=== PATIENT | female | born 1955 | race Caucasian/White ===

== ENCOUNTER 2019-10-21 17:14 | Inpatient (IN) | payer OTHER, MEDICARE, SELFPAY ==
--- NOTE | ~2019-10-21 | CT_ITS ---
EXAMINATION: CT abdomen pelvis wo con DATE: 10/21/2019 19:20 INDICATION: Generalized abdominal pain TECHNIQUE: Computed tomography (CT) of the abdomen and pelvis was performed with 100 cc Omnipaque 350 intravenous contrast. The dose-length product was 1293.49 mGy-cm. Automated exposure control and ite rative reconstruction technique were employed. COMPARISON: CT dated 09/08/2013 FINDINGS: Lung bases are unremarkable. No significant pleural or pericardial effusion. Cardiomegaly. Small right pleural effusion. Status post cholecystectomy. Small amount of free fluid in the pelvis. Stable soft tissue with coarse calcifications in the anterior aspect of the pelvis, which may represent a urachal remnant with asso ciated calcification or postsurgical change. There is thickening and irregularity to the bladder wall superiorly. There is renal atrophy. Status post cholecystectomy with expected prominence of the bile ducts. The s pleen is unremarkable. The adrenal glands are unremarkable. There is stranding of the mesentery and p eritoneum of the upper abdomen. There is mild thickening of the duodenum and distal aspect of the sto mach with surrounding stranding. There is a duodenal diverticulum. No obstruction. There is levoscoli osis. Moderate lumbar spondylosis. IMPRESSION: 1. Fatty infiltration of the upper abdominal peritoneum and mesentery adjacent to the stomach and duo denum, suspicious for infectious/inflammatory etiologies. Cannot exclude pancreatitis as well. Correl ate clinically. No obstruction. No evidence for perforation or abscess. 2: Thickening and irregularity to the superior bladder wall. Cannot exclude transitional cell carcino ma.S table soft tissue with coarse calcifications in the anterior aspect of the pelvis, which may rep resent a urachal remnant with associated calcification or postsurgical change. 3: Tiny right pleural effusion. 4: Small amount of free fluid in the pelvis, nonspecific. 5: Renal atrophy. Reviewed, dictated and finalized at location A. IMPRESSION: 1. Fatty infiltration of the upper abdominal peritoneum and mesentery adjacent to the stomach and duodenum, suspicious for infectious/inflammatory etiologies. Cannot exclude pancreatitis as well. Correlate clinically. No obstruction. No evidence for perforation or abscess. 2: Thickening and irregularity to the superior bladder wall. Cannot exclude tra nsitional cell carcinoma.S table soft tissue with coarse calcifications in the anterior aspect of the pelvis, which may represent a urachal remnant with assoc iated calcification or postsurgical change. 3: Tiny right pleural effusion. 4: Small amount of free fluid in the pelvis, nonspecific. 5: Renal atrophy.
--- NOTE | ~2019-10-21 | US_ITS ---
US right upper quadrant INDICATION: Elevated liver function tests PROCEDURE: Realtime right upper abdominal ultrasound. COMPARISON: Ultrasound dated 09/03/2013 FINDINGS: The pancreas is normal without focal mass or pancreatic ductal dilation. Liver echotexture is increased, consistent with fatty infiltration. There is normal directional flow in the portal ve in. Gallbladder surgically absent. Common bile duct measures 5.5 mm. IMPRESSION: 1: Fatty infiltration of the liver. Reviewed, dictated and finalized at location A.
[2019-10-21 17:58] VITALS: BP 154/51; PULSE 91; RESP 22; TEMP 36.7; O2SAT 100
[2019-10-21 18:16] LABS: Basophils Percent Auto 0.3 % (0.2-1.2); Eosinophils Percent Auto 0.1 % (0-4.4); Hemoglobin 10.4 g/dL (12.0-15.0); Immature Granulocyte Absolute 0.06 K/mm3 (0.00-0.031); Immature Granulocyte Percent A 0.6 % (0-0.5); Lymphocytes Absolute Auto 0.84 K/mm3 (0.9-3.2); Lymphocytes Percent Auto 8.3 % (18.3-44.2); Mean Corpuscular HGB Conc 31.5 g/dl (32-36); Mean Corpuscular Volume 95.1 fl (80-100); Mean Platelet Volume 11.7 fl (7.4-10.4); Monocytes Absolute Auto 0.5 K/mm3 (0.1-0.6); Monocytes Percent Auto 4.6 % (2.6-8.5); Neutrophils Absolute Auto 8.7 K/mm3 (1.3-6.7); Neutrophils Percent Auto 86.1 % (45.5-73.1); Platelet Count Result 220 k/mm3 (150-375); Red Blood Count 3.47 M/mm3 (4.2-5.4); Red Cell Distribution Width 13.1 % (11.5-14.5); White Blood Count 10.1 K/mm3 (4.5-10.0)
[2019-10-21 18:35] LABS: Alanine Aminotransferase 112 U/L (4-35); Albumin Level 3.9 g/dL (3.5-5.1); Alkaline Phosphatase 77 U/L (38-126); Aspartate Amino Transferase 158 U/L (14-36); Bilirubin,Total 1.2 mg/dL (0.2-1.3); Blood Urea Nitrogen 58 mg/dL (7-17); Calcium 9.2 mg/dL (8.4-10.2); Carbon Dioxide 25 mmol/L (22-30); Chloride 90 mmol/L (98-107); Estimated CRCL calculation 10 ml/min; Estimated Glomerular Filt Rate 7; Glucose 472 mg/dL (65-105); Lipase 158 U/L (23-300); Potassium 7.9 mmol/L (3.4-5.0); Sodium 129 mmol/L (137-145)
--- NOTE | 2019-10-21 18:46 | ECG_ITS ---
Measurements Intervals [place] Rate: 55 P: 48 NC: 189 QRS: 47 QRSD: 97 T: 121 QT: 461 QTc: 444 Interpretive Statements SINUS BRADYCARDIA DELAYED PRECORDIAL R/S TRANSITION ST-T WAVE ABNORMALITY IN HIGH LATERAL LEADS- CONSIDER ISCHEMIA ABNORMAL ECG Electronically Signed On 10-21-2019 20:18:31 CDT by Paulo Silva D.O.
--- NOTE | 2019-10-21 19:05 | ED.GENADULT ---
HPI - General Adult General Chief complaint: Abdominal Pain Stated complaint: abd pain Time Seen by Provider: 10/21/19 18:36 History of Present Illness HPI narrative: Patient is a 64 y/o female complaining of burning lower abdominal pain for 1 week. She states that her pain radiates to upper abdomen. She rates her pain as 10/10. There is no alleviating or aggravating factor. She had some vomiting today. She has ESRD and does home dialysis daily -. Her last dialysis treatment was last Monday. Related Data Home Medications Medication Instructions Recorded Confirmed Lantus U-100 Insulin 50 unit SUBCUT HS 04/06/19 10/21/19 Yue-Yves 1 tablet PO DAILY 04/06/19 10/21/19 aspirin 162 mg PO DAILY 04/06/19 10/21/19 atorvastatin [Lipitor] 40 mg PO DAILY 04/06/19 10/21/19 calcitriol 0.25 mcg PO DAILY 04/06/19 10/21/19 cholecalciferol (vitamin D3) 4,000 unit PO DAILY 04/06/19 10/21/19 clonidine HCl 0.1 mg PO BID 04/06/19 10/21/19 clopidogrel 75 mg PO DAILY 04/06/19 10/21/19 escitalopram oxalate [Lexapro] 10 mg PO DAILY 04/06/19 10/21/19 fenofibric acid [Fibricor] 45 mg PO DAILY 04/06/19 10/21/19 furosemide 80 mg PO DAILY 04/06/19 10/21/19 gabapentin 400 mg PO TID 04/06/19 10/21/19 insulin lispro [Humalog Marshall 20 - 30 unit SUBCUT TID 04/06/19 10/21/19 KwikPen U-100] metoprolol tartrate 100 mg PO Q12H 04/06/19 10/21/19 acetaminophen [Tylenol] 650 mg PO TID 10/21/19 10/21/19 sevelamer carbonate [Renvela] 800 mg PO TID 10/21/19 10/21/19 Allergies Allergy/AdvReac Type Severity Reaction Status Date / Time iodine Allergy Unknown Swelling Verified 04/06/19 11:55 lisinopril Allergy Unknown Swelling Verified 04/06/19 11:55 shellfish derived Allergy Unknown Swelling Verified 04/06/19 11:55 Review of Systems Constitutional: Constitutional: Denies chills, Denies fever(s), Denies headache(s) and Denies weakness Eyes: Eyes: Denies blurry vision ENT: Denies headache(s) and Denies neck pain Cardiovascular: Cardiovascular: Denies chest pain and Denies dyspnea Respiratory: Respiratory: Denies cough and Denies dyspnea Gastrointestinal: Gastrointestinal: Reports abdominal pain, Denies diarrhea, Reports nausea and Reports vomiting Genitourinary: Genitourinary: Denies hematuria and Denies dysuria Musculoskeletal: Musculoskeletal: Denies back pain and Denies neck pain Neurologic: Denies headache(s) and Denies weakness [facility] Past Medical History Medical History Anemia in chronic kidney disease, on chronic dialysis Anxiety AV fistula Cataract Chronic GERD CVA (cerebral vascular accident) Depression Diabetes Insulin-dependent with peripheral neuropathy History of CVA (cerebrovascular accident) History of myocardial infarction History of sepsis Hypertension Myocardial infarction History of a total of 3 cardiac stents Pneumonia Renal disease End-stage renal disease with dialysis on Monday Shingles Urinary tract infection Surgical History Surgical History H/O removal of cyst In abdomen History of appendectomy History of heart artery stent 3 total History of tracheostomy History of tubal ligation Hx laparoscopic cholecystectomy Hx of cardiac cath Family History Family History Mother Family history of cardiovascular disease Diabetes mellitus Dementia Sibling Sleep apnea Diabetes mellitus Hypertension Father Family history of lung cancer Family history of congestive heart failure Sibling Sleep apnea Other Family history of obesity Unknown family medical history Social History Social History Social History: to [place] for about 45 years. Her is the durable power attorney law clerk. The patient wishes to be a full code. she has 3 children. She is disabled. [employer]
[2019-10-21] MEDS: INSULIN HUMAN REGULAR (*BKC) 100 UNITS/ML 10 UNITS IV PUSH (19:48)
[2019-10-21] MEDS: DEXTROSE 50% 25 GM/50 ML SYRINGE IV PUSH (19:57)
[2019-10-21] MEDS: SODIUM BICARBONATE 8.4% 50 MEQ/50 ML VIAL IV PUSH (20:03)
[2019-10-21] MEDS: SODIUM POLYSTYRENE SULFONONATE 15 GM/60 ML BTL 30 GM PO (20:06)
[2019-10-21] MEDS: DICYCLOMINE HCL INJ 20 MG/2 ML VIAL IM (20:07)
[2019-10-21 20:15] VITALS: BP 162/63; PULSE 58; RESP 20; O2SAT 93
[2019-10-21 21:04] VITALS: BP 175/67; PULSE 61; RESP 20; O2SAT 98
[2019-10-21 22:01] LABS: Blood Urea Nitrogen 63 mg/dL (7-17); Calcium 9.3 mg/dL (8.4-10.2); Carbon Dioxide 27 mmol/L (22-30); Chloride 90 mmol/L (98-107); Estimated CRCL calculation 11 ml/min; Estimated Glomerular Filt Rate 7; Glucose 423 mg/dL (65-105); Potassium 5.2 mmol/L (3.4-5.0); Sodium 132 mmol/L (137-145)
[2019-10-21 22:41] VITALS: BP 169/59; PULSE 60; PULSE 68; RESP 18; TEMP 36.6; O2SAT 100; BMI 30.4
--- NOTE | 2019-10-21 22:45 | PC.NURSE ---
This patient, Lencho Guerrero, was admitted to IMU Room 212-01. Patient/family oriented to hospital policies and general routines including ID bracelet, bed and alarms, visiting hours, pain management, procedures, bathroom and other care routines, personal items, smoking policy, room service/diet, and visiting hours. Valuables list has been completed. Information on how to activate the Rapid Response Team has been discussed. Patient/Family are encouraged to report perceived risks to care and to ask questions if they do not understand what they are told or what they should do.
[2019-10-21 23:54] LABS: Glucose Point of Care 392 (65-105)
[2019-10-21 23:56] VITALS: BP 145/63; PULSE 64; RESP 22; TEMP 36.5; O2SAT 96
[2019-10-22] VITALS (37 sets, daily range): BP systolic 103–172; BP diastolic 38–80; PULSE 32–94; RESP 15–22; TEMP 35.7–37; O2SAT 87–100
--- NOTE | 2019-10-22 | ECHO_ITS ---
Patient Info Name: Lencho Guerrero Age: 64 years : 1955 Gender: Female Ht: 69 in Wt: 223 lbs BSA: 2.25 m2 HR: 50 bpm BP: 116 / 38 mmHg Heart Rhythm: Bradycardia Technical Quality: Good Exam Date: 10/22/2019 11:07 AM Exam Location: [facility] Pulmonary Patient Status: Inpatient Admit Date: 10/22/2019 Staff Ordering Physician: Jesse Mcgowna MD Alteration Tailor: Owen Barry RDCS Attending Provider: Jesse Mcgowan MD Exam Type: CA echo doppler color flow Study Info Indications R00.1 - Bradycardia, unspecified Complete two-dimensional, color flow and Doppler transthoracic echocardiogram is performed. Strain analysis performed. History/Risk Factors Bradycardia; CAD w/ 3 stents, ESRD, DM, HTN. Summary 1. Normal LV size, moderate LVH, borderline LV systolic function, ejection fraction 50-55%; diastolic dysfunction is present with elevated left heart pressures. Global longitudinal strain -13%. Mild left atrial enlargement. Mildly thickened mitral valve leaflets, trace mitral regurgitation. Mildly calcified aortic valve, mild aortic stenosis, maximal velocity 1.6 m/sec, mean gradient 6 mmHg, calculated aortic valve area 1.5 cm2. Moderate tricuspid regurgitation, severe pulmonary hypertension, RVSP 78 mmHg. Left Ventricle Left ventricular chamber dimension is normal. Left ventricular systolic function is normal, estimated at 50-55%. There is moderately increased left ventricular wall thickness. Left ventricular septal wall motion is normal. The left ventricular diastolic function is abnormal. Right Ventricle Right ventricular chamber dimension is normal. Right ventricular systolic function is normal. Left Atria Left atrial chamber dimension is mildly enlarged. Right Atria Right atrial chamber dimension is normal. Aortic Valve The aortic valve is trileaflet. There is mild aortic valve stenosis with a peak velocity of 159 cm/s, mean gradient of 6 mmHg, and aortic valve area of 1.5 cm2. There is no aortic valve regurgitation. There is mild aortic valve calcification. Pulmonic Valve The pulmonic valve is normal. There is mild pulmonic regurgitation. Mitral Valve The mitral valve has thickened leaflets. There is trace mitral valve regurgitation. Tricuspid Valve The tricuspid valve leaflets are normal. There is moderate tricuspid valve regurgitation. Severe pulmonary hypertension, estimated pulmonary arterial systolic pressure is 78 mmHg. Pericardium/Pleural The pericardium appears epicardial fat pad. There is no pericardial effusion. Inferior Vena Cava Dilated inferior vena cava with <50% collapse upon inspiration consistent with elevated right atrial pressure, 15 mmHg. Aorta The aortic root size at the sinus of Valsalva is normal. The prox ascending aorta size is normal. Left Ventricular Outflow Tract Name Value Normal LVOT 2D LVOT Diameter 1.8 cm LVOT Doppler LVOT Peak Gradient 3 mmHg LVOT Mean Gradient 2 mmHg LVOT VTI 24 cm LVOT VTI/AV VTI Rati
[2019-10-22] MEDS: INSULIN ASPART (*BKC) 100 UNITS/ML 10 UNITS SUB-Q (00:58)
[2019-10-22] MEDS: ONDANSETRON INJ 4 MG/2 ML VIAL IV PUSH (01:25)
[2019-10-22] MEDS: METOPROLOL TARTRATE 50 MG TAB 100 MG PO (01:25)
[2019-10-22 02:33] LABS: Blood Urea Nitrogen 64 mg/dL (7-17); Carbon Dioxide 28 mmol/L (22-30); Chloride 91 mmol/L (98-107); Estimated CRCL calculation 10 ml/min; Estimated Glomerular Filt Rate 6; Glucose 347 mg/dL (65-105); Potassium 5.1 mmol/L (3.4-5.0); Sodium 131 mmol/L (137-145)
--- NOTE | 2019-10-22 02:47 | PM.IMHP ---
H&P: HPI History of Present Illness Chief complaint: abdominal discomfort and nausea++ Narrative: This is a 64 year old morbidly obese Diabetic female who is on home hemodialysis for ESRD M-F presented to the hospital with a complaint of abdominal discomfort over the past week with associated nausea and vomiting. The patient is known to do hemodialysis at home and her last dialysis session was Monday. She denies any significant edema. She denies any fevers, chills, diarrhea, chest pain, shortness of breath, cough, or focal neurological symptoms. The patient was evaluated in the ER yesterday evening and found to have an elevated potassium of 7.9. CT/Abd pelvis was obtained which demonstrated fatty infiltration of the upper abdominal peritoneum and mesentery adjacent to the stomach and duodenum, suspicious for infectious/inflammatory etiologies and thickening and irregularity to the superior bladder wall. Review of Systems Review of Systems: All systems reviewed & are unremarkable except as noted in HPI and below PMFSH Past Medical History Medical History Anemia in chronic kidney disease, on chronic dialysis Anxiety AV fistula Cataract Chronic GERD CVA (cerebral vascular accident) Depression Diabetes Insulin-dependent with peripheral neuropathy History of CVA (cerebrovascular accident) History of myocardial infarction History of sepsis Hypertension Myocardial infarction History of a total of 3 cardiac stents Pneumonia Renal disease End-stage renal disease with dialysis on Monday Shingles Urinary tract infection Surgical History Surgical History H/O removal of cyst In abdomen History of appendectomy History of heart artery stent 3 total History of tracheostomy History of tubal ligation Hx laparoscopic cholecystectomy Hx of cardiac cath Family History Family History Mother Family history of cardiovascular disease Diabetes mellitus Dementia Sibling Sleep apnea Diabetes mellitus Hypertension Father Family history of lung cancer Family history of congestive heart failure Sibling Sleep apnea Other Family history of obesity Unknown family medical history Social History Social History Social History: to [place] for about 45 years. Her is the durable power collections attorney. The patient wishes to be a full code. she has 3 children. She is disabled. Lifelong nonsmoker. She does not drink alcohol since her 1st stroke. Smoking status: Never smoker Alcohol intake: former Substance use: never Gender identity (if verbalized by the patient): Female Spiritual care concerns: No Agree to blood products: Yes Meds Home Medications and Allergies Home Medications Medication Instructions Recorded Confirmed Type Lantus U-100 Insulin 50 unit SUBCUT HS 04/06/19 10/21/19 History Yue-Yves 1 tablet PO DAILY 04/06/19 10/21/19 History aspirin 162 mg PO DAILY 04/06/19 10/21/19 History atorvastatin [Lipitor] 40 mg PO DAILY 04/06/19 10/21/19 History calcitriol 0.25 mcg PO DAILY 04/06/19 10/21/19 History cholecalciferol (vitamin D3) 4,000 unit PO DAILY 04/06/19 10/21/19 History clonidine HCl 0.1 mg PO BID 04/06/19 10/21/19 History clopidogrel 75 mg PO DAILY 04/06/19 10/21/19 History escitalopram oxalate [Lexapro] 10 mg PO DAILY 04/06/19 10/21/19 History fenofibric acid [Fibricor] 45 mg PO DAILY 04/06/19 10/21/19 History furosemide 80 mg PO DAILY 04/06/19 10/21/19 History gabapentin 400 mg PO TID 04/06/19 10/21/19 History insulin lispro [Humalog Marshall 20 - 30 unit SUBCUT TID 04/06/19 10/21/19 History KwikPen U-100] metoprolol tartrate 100 mg PO Q12H 04/06/19 10/21/19 History acetaminophen [Tylenol] 650 mg PO TID 10/21/19 10/21/19 History sevelamer carbonate
[2019-10-22 03:44] LABS: Glucose Point of Care 310 (65-105)
[2019-10-22 06:21] LABS: Add Urine Microscopic? YES; Appearance Urine Turbid (Clear); Bacteria Urine 4+ /hpf; Bilirubin Urine Negative (Negative); Blood Urine 1+ (Negative); Color Urine Yellow (Yellow); Glucose Urine UA 3+ mg/dL (Negative); Ketones Urine Negative (Negative); Leukocyte Esterase Ur 2+ LEU/UL (Negative); Mucus Urine Few /lpf; Nitrate Urine Negative (Negative); Protein Urine 2+ mg/dL (Negative); RBC Urine 51-75 /hpf (0-2); Specific Grav Ur 1.015 (1.001-1.035); Squamous Epithelial Cell Urine Many /hpf (Few); WBC Urine >75 /hpf
[2019-10-22 06:34] LABS: Basophils Absolute Auto 0.1 K/mm3 (0.0-0.1); Basophils Percent Auto 0.5 % (0.2-1.2); Eosinophils Absolute Auto 0.1 K/mm3 (0-0.3); Eosinophils Percent Auto 0.5 % (0-4.4); Hematocrit 33.3 % (37.0-47.0); Hemoglobin 10.3 g/dL (12.0-15.0); Immature Granulocyte Absolute 0.12 K/mm3 (0.00-0.031); Lymphocytes Absolute Auto 2.39 K/mm3 (0.9-3.2); Lymphocytes Percent Auto 19.4 % (18.3-44.2); Mean Corpuscular HGB Conc 30.9 g/dl (32-36); Mean Corpuscular Hemoglobin 29.7 pg (26-34); Mean Platelet Volume 12.1 fl (7.4-10.4); Monocytes Percent Auto 7.8 % (2.6-8.5); Neutrophils Absolute Auto 8.8 K/mm3 (1.3-6.7); Neutrophils Percent Auto 70.8 % (45.5-73.1); Nucleated Red Blood Cells Perc 0.2 % (0.0-0.2); Platelet Count Result 221 k/mm3 (150-375); Red Blood Count 3.47 M/mm3 (4.2-5.4); Red Cell Distribution Width 13.2 % (11.5-14.5); White Blood Count 12.3 K/mm3 (4.5-10.0)
[2019-10-22 06:48] LABS: Blood Urea Nitrogen 64 mg/dL (7-17); Calcium 9.3 mg/dL (8.4-10.2); Carbon Dioxide 25 mmol/L (22-30); Chloride 91 mmol/L (98-107); Estimated CRCL calculation 10 ml/min; Estimated Glomerular Filt Rate 6; Glucose 291 mg/dL (65-105); Potassium 5.4 mmol/L (3.4-5.0); Sodium 132 mmol/L (137-145)
--- NOTE | 2019-10-22 08:00 | PC.NURSE ---
0800 Patient's monitor alarming with pause and heart rate of 24. Entered room and Jacki NOYOLA, at bedside getting vital signs. Patient drowsy but arousable to name. Patient stated, My chest hurts. Complaining of chest pressure a 6/10. EKG obtain and Dr. Mcgowan called. Will continue to monitor.
--- NOTE | 2019-10-22 08:07 | ECG_ITS ---
Measurements Intervals [place] Rate: 40 P: 42 TN: 178 QRS: 53 QRSD: 90 T: 118 QT: 537 QTc: 439 Interpretive Statements SINUS BRADYCARDIA ST-T WAVE ABNORMALITY IN LAT/HIGH LATERAL LEADS- CONSIDER ISCHEMIA BASELINE ARTIFACT- I, III ABNORMAL ECG Electronically Signed On 10-22-2019 8:56:28 CDT by Paulo Silva D.O.
--- NOTE | 2019-10-22 08:23 | PM.IMPN ---
Progress Note: A&P Assessment and Plan (1) Bradycardia: Code(s): R00.1 - Bradycardia, unspecified Status: Acute Assessment and Plan: HR in the 40's and now with cardiac pause of 4.2sec. Most likely related to her Toprol, clonidine and undiagnosed sleep apnea. EKG reviewed and showing no change except rate slower. Will check stat ABG. She may need BiPAP. Cardiology consult. Stop metoprolol and clonidine. Check TSH (2) Hyperkalemia: Code(s): E87.5 - Hyperkalemia Status: Acute Assessment and Plan: Potassium 5.4 this morning. The above episode, will check stat labs. Dialysis today to control electrolyte abnormalities (3) Apnea: Code(s): R06.81 - Apnea, not elsewhere classified Status: Acute Assessment and Plan: Patient most likely has undiagnosed sleep apnea. Check stat ABG. May need BiPAP. (4) Abdominal pain: Code(s): R10.9 - Unspecified abdominal pain Status: Acute Assessment and Plan: Patient with diffuse abdominal pain.CT scan showing stranding of the upper abdominal peritoneum and mesentery adjacent to the stomach and duodenum. Lipase is normal. Will repeat lipase. GI consult for possibly EGD to exclude peptic ulcer disease. Add Protonix (5) ESRD on hemodialysis: Code(s): N18.6 - End stage renal disease; Z99.2 - Dependence on renal dialysis Status: Acute Assessment and Plan: Patient does home dialysis. Nephrology consult. Patient will need dialysis today. (6) Nausea and vomiting: Code(s): R11.2 - Nausea with vomiting, unspecified Status: Acute Assessment and Plan: [place] related to above. Monitor closely. Treat symptomatically. (7) Diabetes: Code(s): E11.9 - Type 2 diabetes mellitus without complications Status: Chronic Assessment and Plan: A1c 9.0 in March. Glucose in the 400 on admission. Glucose better today but still elevated. Will monitor closely for now with Accu-Cheks and sliding scale protocol. Hypoglycemia protocol started. Continue Lantus at night. (8) Hypertension: Code(s): I10 - Essential (primary) hypertension Status: Chronic Assessment and Plan: Blood pressure reviewed on 10/22/2019. Blood pressure soft. Metoprolol and clonidine will be on. (9) Bladder wall thickening: Code(s): N32.89 - Other specified disorders of bladder Status: Acute Assessment and Plan: CT scan findings noted. Consider Urology consult but this may need to be dealt with an outpatient. She is a lifelong nonsmoker. UA noted. Will start Rocephin. Add BCx. Subjective Date/time seen: 10/22/19 08:23 Interval history: 64yo female with ESRD here for abd pain. Patietn with complaints of diffuse abdominal pain. No fever or chills. Slight nausea but no vomiting. No NSAIDs but does take 2 baby ASA. She feels tired today but did not get much sleep last night. Minimal UOP chronically but no complaints of dysuria or hematuria. Call back to the room after patient developed episode cardiac pause of 4.2 seconds. Nursing notes the patient has been apneic at times. Patient had chest pressure around this time. On my evaluation, patient's chest pain had resolved. Patient has been told she needs a sleep study but has not been able to get this test yet. She just had her metoprolol advanced from 50mg to 100mg by her PCP. Exam Narrative: Exam Narrative: AF 108/44 40 22 96% Gen - NARD lying amost flat in bed HEENT - NC/AT, lips reddish-purple but no radha-oral cyanosis Chest - CTA bilaterally, nml RR CV - bradycardic, regular. Abd - soft, mild diffuse abdominal dinesh without localizing signs Ext - No pedal edema, Thrill and bruit in LUE. acrocyanosis of the toes with good cap refill. Neuro - alert and appropriate but appears tired. No focal weakness, no facial droop Skin - cool Objective Data Vital Signs Vital Sig
[2019-10-22 08:32] LABS: Glucose Point of Care 299 (65-105)
--- NOTE | 2019-10-22 08:55 | WPDGICN ---
Assessment and Plan Assessment and plan (1) Abnormal CT scan: Code(s): R93.89 - Abnormal findings on diagnostic imaging of other specified body structures Status: Acute Assessment and Plan: CT scan suggests mesenteric inflammation. This is somewhat nonspecific the etiology of which is obscure. Likely correlates with her brief abdominal pain. Plan is to observe conservatively at this time. Should symptoms continue broad-spectrum antibiotic coverage may be of some benefit. Patient also has bladder wall thickening consistent with urinary tract infection. Which will be treated with antibiotics (2) Nausea and vomiting: Code(s): R11.2 - Nausea with vomiting, unspecified Status: Acute Assessment and Plan: Patient has ongoing nausea likely related azotemia. Patient remains on dialysis. And hopefully this will resolve with continue dialysis will continue to monitor conservatively. Treat symptomatically at this time. (3) Abdominal pain: Code(s): R10.9 - Unspecified abdominal pain Status: Acute Assessment and Plan: Abdominal pain was self-limited Monday night and Monday. Now resolved. Likely related to abnormality seen on CT scan including urinary tract infection and mesenteric inflammation. Will see if this resolves with antibiotic coverage for urinary tract infection. We will monitor with you. Additionally patient now has elevated LFTs. Hepatitis serologies and workup for this will be entertained and LFTs monitored. She has previously had a cholecystectomy. No evidence for biliary dilatation described. (4) ESRD on hemodialysis: Code(s): N18.6 - End stage renal disease; Z99.2 - Dependence on renal dialysis Status: Acute Assessment and Plan: End-stage renal disease likely attributes to anemia of chronic disease and her ongoing nausea. This will need to contribute continue. Her creatinine is relatively high at this point. (5) Anemia in chronic kidney disease, on chronic dialysis: Code(s): N18.6 - End stage renal disease; D63.1 - Anemia in chronic kidney disease; Z99.2 - Dependence on renal dialysis Status: Chronic (6) Urinary tract infection: Code(s): N39.0 - Urinary tract infection, site not specified Status: Acute Assessment and Plan: UTI could account for her abdominal pain. Undoubtedly contributes to the thickening seen on the bladder wall. Will see how this response to antibiotics. (7) Obesity (BMI 30.0-34.9): Code(s): E66.9 - Obesity, unspecified Status: Acute (8) Elevated LFTs: Code(s): R79.89 - Other specified abnormal findings of blood chemistry Status: Acute Assessment and Plan: Etiology of elevated LFTs uncertain. LFTs were elevated in March when hospitalized at that time. New elevation noted at this time could be related to infection such as UTI. Will check hepatitis serologies etc monitor LFTs. GI Consult Note Consult date/time: 10/22/19 08:55 HPI: Lencho Guerrero is a 64 year old female seen in evaluation at the request of the hospitalist service because of abnormal CT scan. Patient reports that she had rather diffuse abdominal pain that began on Monday and abated yesterday after presenting to the hospital. She has a hard time describing the pain but states is the most severe pain she is had. It came on rather suddenly intubated promptly. She states it may have been burning in nature. It is not present at the present time. She has a history of chronic nausea attributed to her azotemia. She has history of diabetes mellitus with end-stage renal disease on home dialysis 3 times a week. She states should she frequently gets nausea relieved with dialysis. She has not had a bowel movement for at least 1 week. She attributes this to severe water restriction. She does not routinely take laxatives. Since admission the hospital she is noted to have cardiac pauses on telemetry monit
[2019-10-22 08:57] LABS: Alveolar/Arterial O2 Gradient 30.5 mmHg; Base Excess ABG -2.4 mEq/l (+/-2.0); Fractional Inspired Oxygen 28 %; HCO3 ABG 24.2 mEq/l (22.0-26.0); Oxygen Content ABG 14.6 %vol (16.0-22.0); Oxygen Saturation ABG 97.6 % (95.0-100.0); Oxyhemoglobin 95.2 % THb (90.0-100.0); PCO2 ABG 49.7 mmHg (35.0-45.0); PO2 ABG 110.5 mmHg (80.0-100.0); PO2 FiO2 Ratio Arterial Blood 3.95 %; Total Hemoglobin 10.8 g/dL (12.0-18.0); pH ABG 7.305 (7.350-7.450)
[2019-10-22 09:03] LABS: Device NASAL CANNULA; Modified Allen's Test Pass; Site Drawn RIGHT BRACHIAL
[2019-10-22 09:18] LABS: Basophils Percent Auto 0.3 % (0.2-1.2); Eosinophils Percent Auto 0.1 % (0-4.4); Hematocrit 31.5 % (37.0-47.0); Hemoglobin 9.9 g/dL (12.0-15.0); Immature Granulocyte Absolute 0.14 K/mm3 (0.00-0.031); Immature Granulocyte Percent A 1.2 % (0-0.5); Lymphocytes Absolute Auto 1.21 K/mm3 (0.9-3.2); Lymphocytes Percent Auto 10.4 % (18.3-44.2); Mean Corpuscular HGB Conc 31.4 g/dl (32-36); Mean Corpuscular Hemoglobin 29.9 pg (26-34); Mean Corpuscular Volume 95.2 fl (80-100); Mean Platelet Volume 12.2 fl (7.4-10.4); Monocytes Percent Auto 8.4 % (2.6-8.5); Neutrophils Absolute Auto 9.2 K/mm3 (1.3-6.7); Neutrophils Percent Auto 79.6 % (45.5-73.1); Nucleated Red Blood Cells Perc 0.3 % (0.0-0.2); Platelet Count Result 198 k/mm3 (150-375); Red Blood Count 3.31 M/mm3 (4.2-5.4); Red Cell Distribution Width 13.3 % (11.5-14.5); White Blood Count 11.6 K/mm3 (4.5-10.0)
[2019-10-22 09:31] LABS: Lipase 133 U/L (23-300)
[2019-10-22 09:36] LABS: Albumin Level 3.7 g/dL (3.5-5.1); Blood Urea Nitrogen 65 mg/dL (7-17); Calcium 9.3 mg/dL (8.4-10.2); Carbon Dioxide 27 mmol/L (22-30); Chloride 91 mmol/L (98-107); Estimated CRCL calculation 10 ml/min; Estimated Glomerular Filt Rate 6; Glucose 282 mg/dL (65-105); Magnesium 1.9 mg/dL (1.6-2.3); Potassium 6.9 mmol/L (3.4-5.0); Sodium 130 mmol/L (137-145)
[2019-10-22 09:37] LABS: Blood Urea Nitrogen 65 mg/dL (7-17); Calcium 9.2 mg/dL (8.4-10.2); Carbon Dioxide 27 mmol/L (22-30); Chloride 91 mmol/L (98-107); Estimated CRCL calculation 10 ml/min; Estimated Glomerular Filt Rate 6; Glucose 283 mg/dL (65-105); Potassium 6.9 mmol/L (3.4-5.0); Sodium 130 mmol/L (137-145)
[2019-10-22 09:42] LABS: Hemoglobin A1C 10.5 % (<5.7)
[2019-10-22] MEDS: INSULIN ASPART (*BKC) 100 UNITS/ML SUB-Q (10:01)
[2019-10-22] MEDS: PANTOPRAZOLE SODIUM IV 40 MG VIAL IV PUSH ×2 (10:02→20:28)
[2019-10-22 10:04] LABS: Alanine Aminotransferase 699 U/L (4-35); Albumin Level 3.5 g/dL (3.5-5.1); Alkaline Phosphatase 65 U/L (38-126); Bilirubin,Total 1.4 mg/dL (0.2-1.3)
[2019-10-22 10:06] LABS: Aspartate Amino Transferase 1147 U/L (14-36)
[2019-10-22 10:29] LABS: Hepatitis B Surface Antigen Negative (Negative)
--- NOTE | 2019-10-22 10:29 | PM.CNNEP ---
Assessment and Plan Assessment and plan (1) ESRD on hemodialysis: Code(s): N18.6 - End stage renal disease; Z99.2 - Dependence on renal dialysis Status: Acute Assessment and Plan: The patient is on hemodialysis at home. She normally skip Saturdays and Sundays. Apparently her potassiums have not been bad. She has not been taking much food in over the weekend because of her belly. So wonder if there is an endogenous source of potassium. Will check a CPK because of the high liver enzymes. Rhabdomyolysis could do this. Also will check stool guaiac to make sure she does not have hematochezia and resorption of potassium from the stool. Low so I do not think this is hemolysis. Patient's heart rate is a bit low. She has been given calcium and also D50 and insulin to bring the potassium down. I called the dialysis nurse and he will be here in about 25 minutes. (2) Abdominal pain: Code(s): R10.9 - Unspecified abdominal pain Status: Acute Assessment and Plan: Etiology of the belly pain is unclear. CT is suggestive but not diagnostic of any particular disorder. Lipase is okay. Consider infection, inflammation, or vascular issues? GI has been consulted (3) Hyperkalemia: Code(s): E87.5 - Hyperkalemia Status: Acute Assessment and Plan: Potassium is high. He is getting medications and also will get dialysis today. (4) Bradycardia: Code(s): R00.1 - Bradycardia, unspecified Status: Acute Assessment and Plan: Heart rate is low from a combination of things including clonidine, metoprolol, and potassium. (5) Acute respiratory failure: Qualifiers: Respiratory failure complication: hypoxia and hypercapnia Qualified Code(s): J96.01 - Acute respiratory failure with hypoxia; J96.02 - Acute respiratory failure with hypercapnia Code(s): J96.00 - Acute respiratory failure, unspecified whether with hypoxia or hypercapnia Status: Acute Assessment and Plan: Patient is on CPAP right now. Her pCO2 is a bit high History of Present Illness Reason for Consult Consult date: 10/22/19 Chief Complaint Chief complaint: abdominal discomfort and nausea++ History of Present Illness Narrative: Lencho is a very pleasant 64-year-old lady who has end-stage renal disease on home hemodialysis 5 days a week. She has been on dialysis for about 14 months. She was on hemodialysis at and switch to home dialysis in July. She has been doing well with the home hemodialysis. She gets labs done in they seem to be okay according to the patient. She also has a history of stroke, coronary artery disease status post myocardial infarction and 3 cardiac stents, shingles, urinary tract infection, hypertension, depression, anemia, renal osteodystrophy. She came in the hospital because of abdominal pain. She says the pain is been going on for a few days. She has been eating very much over the weekend. She has had some nausea and vomiting. He has not had any bloody stools or black stools, or bloody or coffee-ground emesis. She has not had any edema. She has not been short of breath. She was seen in the emergency room. She had a high potassium and this is treated such that the potassium came down. She has CT of the abdomen which showed some changes in the upper abdominal peritoneum. Lipase was okay. She is a bit groggy and still has abdominal pain. She is allergic to iodine lisinopril and shellfish. She does not smoke or drink. Review of Systems Constitutional: Constitutional: Reports no additional constitutional complaints Eyes: Eyes: Reports no additional eye complaints ENT: Reports system reviewed and no additional complaints, except as documented Cardiovascular: Cardiovascular: Reports no additional cardiovascular complaints Respiratory: Respiratory: Reports no additional respiratory complaints Gastrointestinal: Gastrointestinal: Reports no addit
[2019-10-22] MEDS: CALCIUM GLUC 1,000 MG/NS 50 ML 1,000 MG/50 ML BAG 100 MG IVPB (10:32)
[2019-10-22] MEDS: SODIUM BICARBONATE 8.4% 50 MEQ/50 ML VIAL IV PUSH (10:32)
[2019-10-22 10:34] LABS: HAV RESULT Negative (Negative); Hepatitis B Core IgM Result Negative (Negative)
[2019-10-22 10:46] LABS: Hepatitis C Virus Antibody Negative (Negative)
[2019-10-22 10:54] LABS: Creatine Kinase 59 U/L (30-135)
[2019-10-22] MEDS: DEXTROSE 50% 25 GM/50 ML SYRINGE IV PUSH (11:09)
[2019-10-22] MEDS: INSULIN HUMAN REGULAR (*BKC) 100 UNITS/ML 10 UNITS IV PUSH (11:09)
--- NOTE | 2019-10-22 11:52 | PM.CNCAR ---
Assessment and Plan Assessment and plan (1) Bradycardia: Code(s): R00.1 - Bradycardia, unspecified Status: Acute Assessment and Plan: Sinus bradycardia with sinus pause, longest to 4.2 seconds thus far with transient junctional recovery prior to resuming SB. No high grade AV block thus far. Secondary to metoprolol, clonidine, electrolyte imbalance, apnea. Correct electrolyte abnormalities, she has received calcium gluconate, insulin. HD pending for hyperkalemia. BiPAP support. No indication for temporary TV pacemaker at this time or PPM unless symptomatic bradycardia or high grade AV block. (2) Apnea: Code(s): R06.81 - Apnea, not elsewhere classified Status: Acute Assessment and Plan: Likely untreated KAREN. Agree with BiPAP. This may also contribute to ongoing bradycardia particularly sinus pauses. (3) Hyperkalemia: Code(s): E87.5 - Hyperkalemia Status: Acute Assessment and Plan: per primary service and Nephrology. Patient has been treated and will be undergoing hemodialysis. (4) CAD (coronary artery disease): Code(s): I25.10 - Atherosclerotic heart disease of [place] coronary artery without angina pectoris Status: Acute Assessment and Plan: Continue aspirin, statin, clopidogrel. Hold beta-julissa and clonidine due to bradycardia. 2D echo personally reviewed EF lower limits normal 50-55% mild , severe pulmonary hypertension RVSP 78 mm Hg, moderate tricuspid regurgitation. (5) Altered mental status: Code(s): R41.82 - Altered mental status, unspecified Status: Acute Assessment and Plan: Multifactorial. Continue treatment for possible underlying infection, +/-UTI, hemodialysis, and BiPAP for probable untreated KAREN with observed apnea. (6) ESRD on hemodialysis: Code(s): N18.6 - End stage renal disease; Z99.2 - Dependence on renal dialysis Status: Acute Assessment and Plan: Patient reportedly compliant with home dialysis Monday through Monday. per Nephrology. Hemodialysis to be initiated as soon as possible. (7) Elevated LFTs: Code(s): R79.89 - Other specified abnormal findings of blood chemistry Status: Acute Assessment and Plan: Acute transaminitis. GI has been consulted. Hepatitis serologies Negative although positive to hep B surface antibody presumed immunity. (8) Abdominal pain: Code(s): R10.9 - Unspecified abdominal pain Status: Acute Assessment and Plan: Per primary service. CT findings noted. (9) Anemia in chronic kidney disease, on chronic dialysis: Code(s): N18.6 - End stage renal disease; D63.1 - Anemia in chronic kidney disease; Z99.2 - Dependence on renal dialysis Status: Chronic Assessment and Plan: Chronic, stable. History of Present Illness History of Present Illness Consult date/time: Date of service: 10/22/19 11:52 This is a cardiology consultation by Dr. Zhang of the [facility] for our opinion regarding bradycardia and 4.2 second pause. Requesting physician: Edward Zhang MD Consult reason: Other (Bradycardia, 4.2 second pause) Reason For Visit: abdominal discomfort and nausea++ Narrative: patient is a 64-year-old female with past medical history significant for end-stage renal disease on hemodialysis at home Monday through Monday, history of CAD with remote stent implantation, history of remote stroke, diabetes mellitus, hypertension, anemia who presented to the emergency department with complaints of 1 week abdominal discomfort with associated nausea and vomiting. She reports her last hemodialysis was on Monday. She denies chest pain shortness of breath, fevers, chills or recent fall. In the emergency department CT abdomen pelvis was obtained which revealed fatty infiltration upper abdominal peritoneum and mesentery in proximity to the stomach, duodenum secondary to infectious / infl
[2019-10-22 12:12] LABS: Blood Urea Nitrogen 68 mg/dL (7-17); Calcium 9.7 mg/dL (8.4-10.2); Carbon Dioxide 30 mmol/L (22-30); Chloride 92 mmol/L (98-107); Estimated CRCL calculation 10 ml/min; Estimated Glomerular Filt Rate 6; Glucose 375 mg/dL (65-105); Potassium 5.8 mmol/L (3.4-5.0); Sodium 131 mmol/L (137-145)
[2019-10-22] MEDS: GABAPENTIN 400 MG CAPSULE PO (16:17)
[2019-10-22] MEDS: FUROSEMIDE 80 MG TABLET PO (16:17)
[2019-10-22] MEDS: CLOPIDOGREL BISULFATE 75 MG TABLET PO (16:17)
[2019-10-22] MEDS: CHOLECALCIFEROL 1,000 UNIT TABLET 4000 UNITS PO (16:17)
[2019-10-22] MEDS: ATORVASTATIN 40 MG TABLET PO (16:17)
[2019-10-22] MEDS: calcitrioL 0.25 MCG CAPSULE PO (16:17)
[2019-10-22] MEDS: ASPIRIN 81 MG ENTERIC TABLET 162 MG PO (16:18)
[2019-10-22] MEDS: VITAMIN B CMPLX/VIT C/FOLIC AC 1 CAPSULE 1 CAP PO (16:18)
[2019-10-22] MEDS: polyethylene glycoL 3350 17 GM POWD.PACK PO (16:18)
[2019-10-22] MEDS: ESCITALOPRAM OXALATE 10 MG TABLET PO (16:18)
[2019-10-22 16:28] LABS: Glucose Point of Care 188 (65-105)
[2019-10-22] MEDS: SEVELAMER CARBONATE 800 MG TABLET PO (17:21)
[2019-10-22] MEDS: cefTRIAXone 1 GM VIAL IM (18:46)
[2019-10-22] MEDS: LIDOCAINE HCL 1% LOCAL INJ 10 ML VIAL 2.1 ML XX (18:46)
[2019-10-22 20:30] LABS: Glucose Point of Care 157 (65-105)
[2019-10-22] MEDS: INSULIN GLARGINE (*BKC) 100 UNITS/ML 50 UNITS SUB-Q (20:33)
[2019-10-22 23:49] LABS: Glucose Point of Care 148 (65-105)
[2019-10-23] VITALS (16 sets, daily range): BP systolic 129–149; BP diastolic 40–76; PULSE 48–102; RESP 18–20; TEMP 36.2–36.6; O2SAT 95–100
--- NOTE | 2019-10-23 04:34 | PCRCNOTE ---
Apnea link was not performed last night (10/22/19) due to patient being too unstable per RN. RN stated patient janine's down when not on c pap and goes apneic for long periods of time. Apnea link to be attempted tonight (10/23/19).
[2019-10-23 08:20] LABS: Glucose Point of Care 125 (65-105)
--- NOTE | 2019-10-23 08:48 | PM.PNNEP ---
Progress Note: A&P Assessment and Plan (1) ESRD on hemodialysis: Code(s): N18.6 - End stage renal disease; Z99.2 - Dependence on renal dialysis Status: Acute Assessment and Plan: The patient is on hemodialysis at home. she had HD yesterday and did well. she feels better. long discussion about getting her labs done. (2) Abdominal pain: Code(s): R10.9 - Unspecified abdominal pain Status: Acute Assessment and Plan: Etiology of the belly pain is unclear. CT is suggestive but not diagnostic of any particular disorder. Lipase is okay. GI on the case. (3) Hyperkalemia: Code(s): E87.5 - Hyperkalemia Status: Acute Assessment and Plan: Potassium was high. todays pending. (4) Bradycardia: Code(s): R00.1 - Bradycardia, unspecified Status: Acute Assessment and Plan: Heart rate is low from a combination of things including clonidine, metoprolol, and potassium. HR better today. we will see what potassium shows. (5) Acute respiratory failure: Qualifiers: Respiratory failure complication: hypoxia and hypercapnia Qualified Code(s): J96.01 - Acute respiratory failure with hypoxia; J96.02 - Acute respiratory failure with hypercapnia Code(s): J96.00 - Acute respiratory failure, unspecified whether with hypoxia or hypercapnia Status: Acute Assessment and Plan: Patient is on CPAP right now. she looks a lot better. Subjective Date/time seen: 10/23/19 08:48 Interval history: alert, fees okay on cpap and feels better. breathing better. belly is better but still hurts some. had HD yesterday. trouble drawing blood. Review of Systems Cardiovascular: Cardiovascular: Reports no additional cardiovascular complaints Respiratory: Respiratory: Reports no additional respiratory complaints Gastrointestinal: Gastrointestinal: Reports no additional gastrointestinal complaints Genitourinary: Genitourinary: Reports no additional female genitourinary complaints Exam Narrative: Exam Narrative: WDWN in NAD skin no rash head ncat lungs clear cor reg no rub abd BS+ nontender and soft ext no edema. Objective Data Vital Signs Vital Signs: Vital Signs - 24 hr 10/22/19 09:00 10/22/19 10:00 10/22/19 10:15 Temperature Pulse Rate 47 L Respiratory Rate 17 Blood Pressure Pulse Oximetry 87 L 100 10/22/19 12:00 10/22/19 12:40 10/22/19 12:41 Temperature Pulse Rate 52 L 52 L Respiratory Rate Blood Pressure 159/72 H Pulse Oximetry 91 10/22/19 12:45 10/22/19 13:00 10/22/19 13:15 Temperature Pulse Rate 52 L 51 L 51 L Respiratory Rate Blood Pressure 143/60 H 158/64 H 130/61 Pulse Oximetry 10/22/19 13:30 10/22/19 13:36 10/22/19 13:45 Temperature Pulse Rate 50 L 51 L Respiratory Rate 15 Blood Pressure 119/57 L 120/56 L Pulse Oximetry 100 10/22/19 14:00 10/22/19 14:15 10/22/19 14:30 Temperature Pulse Rate 52 L Respiratory Rate Blood Pressure 125/53 L 136/59 L 171/71 H Pulse Oximetry 10/22/19 14:45 10/22/19 15:00 10/22/19 15:15 Temperature Pulse Rate 51 L 52 L 53 L Respiratory Rate Blood Pressure 152/72 H 156/64 H 164/71 H Pulse Oximetry 10/22/19 15:30 10/22/19 15:41 10/22/19 15:45 Temperature 36.5 C Pulse Rate 53 L 53 L 53 L Respiratory Rate 20 Blood Pressure 170/80 H 172/74 H 169/70 H Pulse Oximetry 10/22/19 16:00 10/22/19 16:20 10/22/19 18:00 Temperature 36.2 C L Pulse Rate 56 L 53 L Respiratory Rate 20 Blood Pressure 149/44 H Pulse Oximetry 100 94 10/22/19 19:47 10/22/19 20:00 10/22/19 21:30 Temperature 36.5 C Pulse Rate 66 59 L 56 L Respiratory Rate 20 16 Blood Pressure 137/58 L Pulse Oximetry 96 100 10/22/19 22:00 10/22/19 23:58 10/23/19 00:00 Temperature 36.4 C Pulse Rate 67 58 L 56 L Respiratory Rate 20 Blood Pressure 103/49 L Pulse Oximetry 92
[2019-10-23 09:02] LABS: Hematocrit 28.3 % (37.0-47.0); Hemoglobin 8.8 g/dL (12.0-15.0); Mean Corpuscular HGB Conc 31.1 g/dl (32-36); Mean Corpuscular Hemoglobin 29.9 pg (26-34); Mean Corpuscular Volume 96.3 fl (80-100); Mean Platelet Volume 12.3 fl (7.4-10.4); Platelet Count Result 157 k/mm3 (150-375); Red Blood Count 2.94 M/mm3 (4.2-5.4); Red Cell Distribution Width 13.3 % (11.5-14.5); White Blood Count 6.9 K/mm3 (4.5-10.0)
[2019-10-23] MEDS: GABAPENTIN 400 MG CAPSULE PO ×3 (09:14→17:36)
[2019-10-23] MEDS: SEVELAMER CARBONATE 800 MG TABLET PO ×3 (09:16→17:35)
[2019-10-23] MEDS: VITAMIN B CMPLX/VIT C/FOLIC AC 1 CAPSULE 1 CAP PO (09:16)
[2019-10-23 09:17] LABS: Albumin Level 3.2 g/dL (3.5-5.1); Alkaline Phosphatase 64 U/L (38-126); Blood Urea Nitrogen 48 mg/dL (7-17); Calcium 8.8 mg/dL (8.4-10.2); Carbon Dioxide 32 mmol/L (22-30); Chloride 94 mmol/L (98-107); Estimated CRCL calculation 12 ml/min; Estimated Glomerular Filt Rate 8; Glucose 124 mg/dL (65-105); Magnesium 1.7 mg/dL (1.6-2.3); Phosphorus 5.4 mg/dL (2.5-4.5); Potassium 4.3 mmol/L (3.4-5.0); Sodium 134 mmol/L (137-145)
[2019-10-23] MEDS: PANTOPRAZOLE SODIUM IV 40 MG VIAL IV PUSH (09:18)
[2019-10-23 09:39] LABS: Alanine Aminotransferase 1408 U/L (4-35); Aspartate Amino Transferase 1843 U/L (14-36)
--- NOTE | 2019-10-23 09:57 | WPDGIPROGNO ---
Progress Note: A&P Additional Plan Patient denies abdominal pain today. States pain has been gone since yesterday. She still continues to have some nausea. She reports her bowel habits are infrequent consistent constipation. Physical exam reveals patient to be alert. Vital signs are stable. HEENT exam unremarkable. Lungs are clear. Heart without murmur. Abdomen is obese soft currently nontender with no organomegaly. Impression 1. Resolved abdominal pain. Appears to correlate with mesenteric inflammation seen on CT scan. The CT findings are nonspecific for any particular disease. Plan is to follow conservatively. Antibiotics given for urinary tract infection may help if this is infectious. 2. UTI. 3. Obesity. 4. Elevated LFTs. Marked elevation of transaminases noted. Could be related to shock liver period possibly related to a temporary hypotensive episode. Plan is to check labs searching for other etiologies. Can treat conservatively at this time. Patient is currently pain-free.. 5. End-stage renal disease on dialysis. Azotemia likely contributes to her nausea. Anemia related end-stage renal disease. Subjective Date/time seen: 10/23/19 09:57 Objective Data Vital Signs Vital Signs: Vital Signs - 24 hr 10/22/19 10:00 10/22/19 10:15 10/22/19 12:00 Temperature Pulse Rate 47 L 52 L Respiratory Rate 17 Blood Pressure Pulse Oximetry 100 10/22/19 12:40 10/22/19 12:41 10/22/19 12:45 Temperature Pulse Rate 52 L 52 L Respiratory Rate Blood Pressure 159/72 H 143/60 H Pulse Oximetry 91 10/22/19 13:00 10/22/19 13:15 10/22/19 13:30 Temperature Pulse Rate 51 L 51 L 50 L Respiratory Rate Blood Pressure 158/64 H 130/61 119/57 L Pulse Oximetry 10/22/19 13:36 10/22/19 13:45 10/22/19 14:00 Temperature Pulse Rate 51 L 52 L Respiratory Rate 15 Blood Pressure 120/56 L 125/53 L Pulse Oximetry 100 10/22/19 14:15 10/22/19 14:30 10/22/19 14:45 Temperature Pulse Rate 51 L Respiratory Rate Blood Pressure 136/59 L 171/71 H 152/72 H Pulse Oximetry 10/22/19 15:00 10/22/19 15:15 10/22/19 15:30 Temperature Pulse Rate 52 L 53 L 53 L Respiratory Rate Blood Pressure 156/64 H 164/71 H 170/80 H Pulse Oximetry 10/22/19 15:41 10/22/19 15:45 10/22/19 16:00 Temperature 97.7 F 97.1 F L Pulse Rate 53 L 53 L 56 L Respiratory Rate 20 20 Blood Pressure 172/74 H 169/70 H 149/44 H Pulse Oximetry 100 10/22/19 16:20 10/22/19 18:00 10/22/19 19:47 Temperature 97.7 F Pulse Rate 53 L 66 Respiratory Rate 20 Blood Pressure 137/58 L Pulse Oximetry 94 96 10/22/19 20:00 10/22/19 21:30 10/22/19 22:00 Temperature Pulse Rate 59 L 56 L 67 Respiratory Rate 16 Blood Pressure Pulse Oximetry 100 10/22/19 23:58 10/23/19 00:00 10/23/19 01:59 Temperature 97.6 F Pulse Rate 58 L 56 L 56 L Respiratory Rate 20 Blood Pressure 103/49 L Pulse Oximetry 92 10/23/19 03:03 10/23/19 04:00 10/23/19 05:57 Temperature 97.9 F Pulse Rate 55 L 102 H 58 L Respiratory Rate 20 Blood Pressure 137/76 Pulse Oximetry 98 97 10/23/19 08:00 10/23/19 08:45 10/23/19 08:58 Temperature 97.5 F L Pulse Rate 51 L 51 L Respiratory Rate 20 Blood Pressure 149/47 H Pulse Oximetry 100 96 Intake/Output Intake/Output: Intake & Output 10/20/19 10/21/19 10/22/19 10/23/19 23:59 23:59 23:59 23:59 Intake Total 50 390 Output Total 1700 100 Balance -1650 290 Meds/Results Medications: Active Medications Generic Name Dose Route Start Last Admin Trade Name Freq PRN Reason Stop Dose Admin Acetaminophen 650 mg 10/22/19 00:31 Tylenol Tablet PO Q4H PRN Mild Pain (1-3) or Fever Hydrocodone Bitart/Acetaminophen 1 tab 10/22/19 00:31 10/22/19 01:26 [place] 5-325 Mg PO 1 tab Q4H PRN Administration Moderate Pain (4-6) Aspirin 162 mg 10/22/19 09:00 10/22/19 16:18
[2019-10-23 12:13] LABS: Iron 55 ug/dL (37-170)
[2019-10-23 12:13] LABS: Ammonia < 9 umol/L (9-30)
[2019-10-23 12:17] LABS: Glucose Point of Care 185 (65-105)
[2019-10-23 12:23] LABS: Percent Iron Saturation 18 % (20-50)
--- NOTE | 2019-10-23 13:28 | PM.IMPN ---
Progress Note: A&P Assessment and Plan (1) Bradycardia: Code(s): R00.1 - Bradycardia, unspecified Status: Acute Assessment and Plan: HR dropped into the 40's with cardiac pause of 4.2sec. Most likely related to her Toprol, clonidine and undiagnosed sleep apnea. EKG reviewed and showing no change except rate slower. Metoprolol and clonidine have been stopped. TSH normal. (2) Hyperkalemia: Code(s): E87.5 - Hyperkalemia Status: Acute Assessment and Plan: Potassium better at 4.3 this morning. Contineu to control with HD. (3) Apnea: Code(s): R06.81 - Apnea, not elsewhere classified Status: Acute Assessment and Plan: Patient most likely has undiagnosed sleep apnea. ABG showing pH 7.30, pCO2 49.7 and pO2 110 on 2L. Toelrating the auto-BiPAP. Apnea link not performed last night. Re-order apnea link. (4) Abdominal pain: Code(s): R10.9 - Unspecified abdominal pain Status: Acute Assessment and Plan: Patient with diffuse abdominal pain on admission which is better. CT scan showing stranding of the upper abdominal peritoneum and mesentery adjacent to the stomach and duodenum. Lipase is normal. LFTs elevated and worse today. GI consulted. Hepatitis panel negative. Possibly shock liver from the severe bradycardia. Continue Protonix for now. (5) ESRD on hemodialysis: Code(s): N18.6 - End stage renal disease; Z99.2 - Dependence on renal dialysis Status: Acute Assessment and Plan: Patient does home dialysis. states HD has been going well at home. Nephrology following. Tolerated HD well yesterday and plan for dialysis today. Appreciate Nephrology input. (6) Nausea and vomiting: Code(s): R11.2 - Nausea with vomiting, unspecified Status: Acute Assessment and Plan: [place] related to above. Symptoms appear to be resolving. Patient eating and tolerating it well. (7) Diabetes: Code(s): E11.9 - Type 2 diabetes mellitus without complications Status: Chronic Assessment and Plan: A1c 9.0 in March. Glucose in the 400 on admission. Glucose better controlled today. Will monitor closely for now with Accu-Cheks and sliding scale protocol. Hypoglycemia protocol available as needed. Continue Lantus at night. (8) Hypertension: Code(s): I10 - Essential (primary) hypertension Status: Chronic Assessment and Plan: Blood pressure reviewed on 10/23/2019. Blood pressure now elevated at times. Metoprolol and clonidine currently on hold. Consider using Norvasc if needed. Continue to monitor. (9) Bladder wall thickening: Code(s): N32.89 - Other specified disorders of bladder Status: Acute Assessment and Plan: CT scan findings noted. Consider Urology consult but this may need to be dealt with an outpatient. She is a lifelong nonsmoker. UA noted. Urine culture growing greater than 3 organisms to suggest contaminated specimen. Blood cultures are no growth today. Will stop Rocephin. Monitor clinically. Subjective Date/time seen: 10/23/19 13:28 Interval history: 64yo female with ESRD here for abd pain and found to have hyperkalemia. Patient developed episode cardiac pause of 4.2 seconds but was on metoprolol and clonidine. Abdominal pain better. Eating normally now. Was confused this morning and does not remember much about talking with other doctors this morning. No n/v. in the room: he denies any problems with the HD. Patient states she is adherent to renal diet. Tolerating the mask when sleeping. Exam Narrative: Exam Narrative: AF 132/57 54 18 95% 2L Gen - NARD sititng up at side of bed finishing lunch HEENT - NC/AT, no radha-oral cyanosis Chest - distant but clear BS CV - RRR S1/S2. Tele showing no further pauses Abd - soft, ND, minimal tenderness to the RLQ, +BS Ext - No pedal edema. LUE dressing clean an
[2019-10-23] MEDS: ASPIRIN 81 MG ENTERIC TABLET 162 MG PO (13:36)
[2019-10-23] MEDS: ACETAMINOPHEN 325 MG TABLET 650 MG PO (13:42)
[2019-10-23] MEDS: ESCITALOPRAM OXALATE 10 MG TABLET PO (13:43)
[2019-10-23] MEDS: CHOLECALCIFEROL 1,000 UNIT TABLET 4000 UNITS PO (13:43)
[2019-10-23 13:50] LABS: Ferritin > 2000.00 ng/mL (11.1-264)
[2019-10-23] MEDS: calcitrioL 0.25 MCG CAPSULE PO (13:52)
[2019-10-23] MEDS: CLOPIDOGREL BISULFATE 75 MG TABLET PO (13:53)
[2019-10-23] MEDS: FUROSEMIDE 80 MG TABLET PO (13:55)
--- NOTE | 2019-10-23 15:23 | PM.PNCARD ---
Progress Note: A&P Assessment and Plan (1) Bradycardia: Code(s): R00.1 - Bradycardia, unspecified Status: Acute Assessment and Plan: Sinus bradycardia with sinus pause, longest to 4.2 seconds with transient junctional recovery prior to resuming SB. No high grade AV block thus far. Secondary to metoprolol, clonidine, electrolyte imbalance, apnea. Heart rates have been 50s to 60s today. Transient episode of Potassium 7.9 on admission. Today so 4.3. Had dialysis yesterday. Awaiting dialysis today. Metoprolol and clonidine were discontinued. Blood pressure has been acceptable. Apnea link has been ordered. Continue telemetry monitoring, monitoring electrolytes and continuous O2 sat. Results of apnea link to be reviewed tomorrow (2) Apnea: Code(s): R06.81 - Apnea, not elsewhere classified Status: Acute Assessment and Plan: Likely untreated KAREN. Only used BiPAP on day of admission. Apnea link has been ordered (3) Hyperkalemia: Code(s): E87.5 - Hyperkalemia Status: Acute Assessment and Plan: As above (4) CAD (coronary artery disease): Qualifiers: Coronary Disease-Associated Artery/Lesion type: [place] artery [place] vs. transplanted heart: [place] heart Associated angina: without angina Qualified Code(s): I25.10 - Atherosclerotic heart disease of [place] coronary artery without angina pectoris Code(s): I25.10 - Atherosclerotic heart disease of [place] coronary artery without angina pectoris Status: Acute Assessment and Plan: Continue aspirin, statin, clopidogrel Beta-julissa and clonidine on hold due to bradycardia. No ischemic symptoms today. 2D echo personally reviewed by Dr Santana: EF lower limits normal 50-55% mild , severe pulmonary hypertension RVSP 78 mm Hg, moderate tricuspid regurgitation. (5) Altered mental status: Qualifiers: Altered mental status type: somnolence Qualified Code(s): R40.0 - Somnolence Code(s): R41.82 - Altered mental status, unspecified Status: Acute Assessment and Plan: Alert today. (6) ESRD on hemodialysis: Code(s): N18.6 - End stage renal disease; Z99.2 - Dependence on renal dialysis Status: Acute Assessment and Plan: Reportedly compliant with home dialysis Monday through Monday. Management per Nephrology. Hemodialysis as above (7) Elevated LFTs: Code(s): R79.89 - Other specified abnormal findings of blood chemistry Status: Acute Assessment and Plan: Acute transaminitis. GI has been consulted. Hepatitis serologies Negative although positive to hep B surface antibody presumed immunity. (8) Abdominal pain: Qualifiers: Abdominal location: generalized Qualified Code(s): R10.84 - Generalized abdominal pain Code(s): R10.9 - Unspecified abdominal pain Status: Acute Assessment and Plan: Per primary service. CT findings noted. (9) Anemia in chronic kidney disease, on chronic dialysis: Code(s): N18.6 - End stage renal disease; D63.1 - Anemia in chronic kidney disease; Z99.2 - Dependence on renal dialysis Status: Chronic Assessment and Plan: Chronic, stable Additional Plan Plan discussed with Dr Santana 16 30 Time Spent With Patient Time with patient: less than 15 minutes Subjective Date/time seen: 10/23/19 15:23 Interval history: Follow-up for: Sinus bradycardia with sinus pause, longest to 4.2 seconds with transient junctional recovery prior to resuming SB. No high grade AV block thus far. Hyperkalemia, beta-julissa and clonidine, apnea, pain Date of service: 10/23/2019 Subjective: Some abdominal discomfort
[2019-10-23] MEDS: ATORVASTATIN 40 MG TABLET PO (17:36)
[2019-10-23] MEDS: INSULIN ASPART (*BKC) 100 UNITS/ML SUB-Q (17:37)
[2019-10-23 18:08] LABS: Glucose Point of Care 290 (65-105)
[2019-10-23] MEDS: INSULIN GLARGINE (*BKC) 100 UNITS/ML 50 UNITS SUB-Q (20:29)
[2019-10-23] MEDS: PANTOPRAZOLE 40 MG TABLET PO (20:29)
[2019-10-23 20:36] LABS: Glucose Point of Care 244 (65-105)
[2019-10-24] VITALS (31 sets, daily range): BP systolic 123–168; BP diastolic 46–74; PULSE 54–88; RESP 12–20; TEMP 35.6–37; O2SAT 89–100
--- NOTE | 2019-10-24 07:17 | WPDGIPROGNO ---
Progress Note: A&P Additional Plan Patient alert and comfortable this morning. States she had a brief abdominal discomfort after eating yesterday. No abdominal pain reported this morning. She is tolerating diet. No longer with significant nausea vomiting. Physical exam reveals her to be afebrile. Vital signs stable. Irregularity to her heart rate noted on telemetry. Lungs are clear to auscultation. Heart without murmur. Abdomen is obese. Bowel sounds are present. Soft nontender with no organomegaly. Labs reveal hemoglobin 8.8, hematocrit 28, MCV 96. Stable. BUN 48, creatinine 5.5, AST and ALT pending today. Yesterday AST 1843, ALT 1408. Impression 1. Resolved nausea vomiting. Likely secondary to azotemia. 2. Resolved abdominal pain. Etiology unclear. Likely related to mesenteric inflammation seen on CT scan. This is nonspecific. Antibiotics for urinary tract infection may be of some benefit here 3. Elevated LFTs. Most consistent with ?shock liver?. She likely had brief hypertensive of episode associated with sinus pause. 4. Cardiac heart rate irregularity. Cardiology service following. Could this be tachy-janine syndrome. 4. End-stage renal disease on dialysis. Subjective Date/time seen: 10/24/19 07:17 Objective Data Vital Signs Vital Signs: Vital Signs - 24 hr 10/23/19 08:00 10/23/19 08:45 10/23/19 08:58 Temperature 97.5 F L Pulse Rate 51 L 51 L Respiratory Rate 20 Blood Pressure 149/47 H Pulse Oximetry 100 96 10/23/19 10:00 10/23/19 12:00 10/23/19 16:00 Temperature 97.3 F L 97.1 F L Pulse Rate 52 L 56 L 55 L Respiratory Rate 18 20 Blood Pressure 132/57 L 147/46 H Pulse Oximetry 95 100 10/23/19 16:30 10/23/19 18:00 10/23/19 20:00 Temperature 97.7 F Pulse Rate 55 L 55 L 55 L Respiratory Rate 18 Blood Pressure 129/40 L Pulse Oximetry 98 10/23/19 21:45 10/23/19 22:00 10/24/19 00:00 Temperature Pulse Rate 57 L 48 L 55 L Respiratory Rate 18 18 Blood Pressure Pulse Oximetry 97 89 L 10/24/19 01:57 10/24/19 04:00 10/24/19 05:47 Temperature 98.5 F Pulse Rate 56 L 54 L 60 Respiratory Rate 20 Blood Pressure 138/46 L Pulse Oximetry 100 Intake/Output Intake/Output: Intake & Output 10/21/19 10/22/19 10/23/19 10/24/19 23:59 23:59 23:59 23:59 Intake Total 50 870 Output Total 1700 350 600 Balance -1650 520 -600 Meds/Results Medications: Active Medications Generic Name Dose Route Start Last Admin Trade Name Freq PRN Reason Stop Dose Admin Acetaminophen 650 mg 10/22/19 00:31 10/23/19 13:42 Tylenol Tablet PO 650 mg Q4H PRN Administration Mild Pain (1-3) or Fever Hydrocodone Bitart/Acetaminophen 1 tab 10/22/19 00:31 10/22/19 01:26 [place] 5-325 Mg PO 1 tab Q4H PRN Administration Moderate Pain (4-6) Aspirin 162 mg 10/22/19 09:00 10/23/19 13:36 Aspirin Ec PO 162 mg DAILY KASSIDY Administration Atorvastatin Calcium 40 mg 10/22/19 09:00 10/23/19 17:36 Lipitor PO 40 mg DAILY KASSIDY Administration Calcitriol 0.25 mcg 10/22/19 09:00 10/23/19 13:52 Rocaltrol PO 0.25 mcg DAILY KASSIDY Administration Clopidogrel Bisulfate 75 mg 10/22/19 09:00 10/23/19 13:53 Plavix PO 75 mg DAILY KASSIDY Administration Dextrose 12.5 gm 10/22/19 00:29 Dextrose 50% Syringe IV PUSH PRN PRN Hypoglycemia Protocol Escitalopram Oxalate 10 mg 10/22/19 09:00 10/23/19 13:43 Lexapro PO 10 mg DAILY KASSIDY Administration Furosemide 80 mg 10/22/19 09:00 10/23/19 13:55 Lasix Tablet PO 80 mg DAILY KASSIDY Administration Gabapentin 400 mg 10/22/19 09:00 10/23/19 17:36 Neurontin PO 400 mg TID KASSIDY Administration Glucagon 1 mg 10/22/19 00:29 Glucagon For Inj IM PRN PRN Hypoglycemia Protocol Glucose 15 gm 10/22/19 00:29 Glutose 15 PO PRN PRN Hypoglycemia Protocol Dextrose 1,000 mls @ 100 mls/hr 10/22/19 00:29
[2019-10-24] MEDS: GABAPENTIN 400 MG CAPSULE PO ×3 (08:10→18:09)
[2019-10-24] MEDS: CHOLECALCIFEROL 1,000 UNIT TABLET 4000 UNITS PO (08:10)
[2019-10-24] MEDS: CLOPIDOGREL BISULFATE 75 MG TABLET PO (08:10)
[2019-10-24] MEDS: ESCITALOPRAM OXALATE 10 MG TABLET PO (08:10)
[2019-10-24] MEDS: VITAMIN B CMPLX/VIT C/FOLIC AC 1 CAPSULE 1 CAP PO (08:10)
[2019-10-24] MEDS: ATORVASTATIN 40 MG TABLET PO (08:10)
[2019-10-24] MEDS: PANTOPRAZOLE 40 MG TABLET PO ×2 (08:11→20:10)
[2019-10-24] MEDS: calcitrioL 0.25 MCG CAPSULE PO (08:11)
[2019-10-24] MEDS: FUROSEMIDE 80 MG TABLET PO (08:11)
[2019-10-24] MEDS: ASPIRIN 81 MG ENTERIC TABLET 162 MG PO (08:11)
[2019-10-24] MEDS: SEVELAMER CARBONATE 800 MG TABLET PO ×3 (08:11→18:09)
[2019-10-24] MEDS: polyethylene glycoL 3350 17 GM POWD.PACK PO (08:13)
[2019-10-24 08:28] LABS: Glucose Point of Care 162 (65-105)
[2019-10-24 08:52] LABS: Basophils Percent Auto 0.6 % (0.2-1.2); Eosinophils Absolute Auto 0.2 K/mm3 (0-0.3); Eosinophils Percent Auto 3.3 % (0-4.4); Hematocrit 29.7 % (37.0-47.0); Hemoglobin 9.2 g/dL (12.0-15.0); Immature Granulocyte Absolute 0.03 K/mm3 (0.00-0.031); Immature Granulocyte Percent A 0.6 % (0-0.5); Lymphocytes Absolute Auto 1.09 K/mm3 (0.9-3.2); Lymphocytes Percent Auto 20.3 % (18.3-44.2); Mean Corpuscular Hemoglobin 30.2 pg (26-34); Mean Corpuscular Volume 97.4 fl (80-100); Monocytes Absolute Auto 0.4 K/mm3 (0.1-0.6); Neutrophils Absolute Auto 3.6 K/mm3 (1.3-6.7); Neutrophils Percent Auto 67.2 % (45.5-73.1); Platelet Count Result 146 k/mm3 (150-375); Red Blood Count 3.05 M/mm3 (4.2-5.4); Red Cell Distribution Width 13.3 % (11.5-14.5); White Blood Count 5.4 K/mm3 (4.5-10.0)
[2019-10-24 09:08] LABS: Albumin Level 3.4 g/dL (3.5-5.1); Alkaline Phosphatase 68 U/L (38-126); Bilirubin,Total 0.9 mg/dL (0.2-1.3); Blood Urea Nitrogen 56 mg/dL (7-17); Calcium 8.9 mg/dL (8.4-10.2); Carbon Dioxide 30 mmol/L (22-30); Chloride 93 mmol/L (98-107); Estimated CRCL calculation 10 ml/min; Estimated Glomerular Filt Rate 6; Glucose 152 mg/dL (65-105); Phosphorus 6.2 mg/dL (2.5-4.5); Potassium 4.2 mmol/L (3.4-5.0); Sodium 135 mmol/L (137-145)
[2019-10-24 10:05] LABS: Alanine Aminotransferase 1222 U/L (4-35); Aspartate Amino Transferase 877 U/L (14-36)
[2019-10-24 12:39] LABS: Glucose Point of Care 152 (65-105)
--- NOTE | 2019-10-24 13:27 | PM.IMPN ---
Progress Note: A&P Assessment and Plan (1) Bradycardia: Code(s): R00.1 - Bradycardia, unspecified Status: Acute Assessment and Plan: HR dropped into the 40's with cardiac pause of 4.2sec. Most likely related to her Toprol, clonidine and undiagnosed sleep apnea. EKG reviewed and showing no change except rate slower. Metoprolol and clonidine have been stopped. TSH normal. Patient also had a transient episode of atrial fibrillation yesterday. This was discussed with Cardiology at the time. No recurrence by telemetry. Heart rate stable. Appreciate Cardiology input. (2) Hyperkalemia: Code(s): E87.5 - Hyperkalemia Status: Acute Assessment and Plan: Potassium remaining normal now. Continue hemodialysis to control potassium. (3) Apnea: Code(s): R06.81 - Apnea, not elsewhere classified Status: Acute Assessment and Plan: Patient has undiagnosed sleep apnea. ABG showing pH 7.30, pCO2 49.7 and pO2 110 on 2L. AHI 41 and RI 43. Patient required 2L O2 overnight during the test because she dropped her O2 to 54%. She is tolerating the auto-BiPAP. Respiratory therapy has been contacted to try to arrange for home BiPAP at discharge. (4) Abdominal pain: Qualifiers: Abdominal location: unspecified location Qualified Code(s): R10.9 - Unspecified abdominal pain Code(s): R10.9 - Unspecified abdominal pain Status: Acute Assessment and Plan: Patient with diffuse abdominal pain on admission which is better. CT scan showing stranding of the upper abdominal peritoneum and mesentery adjacent to the stomach and duodenum. Lipase is normal. LFTs elevated and better today. Hepatitis panel negative. Possibly shock liver from the severe bradycardia but consider related to localized peritonitis. Continue Protonix for now. Appreciate GI input. (5) Elevated LFTs: Code(s): R79.89 - Other specified abnormal findings of blood chemistry Status: Acute Assessment and Plan: As above. (6) ESRD on hemodialysis: Code(s): N18.6 - End stage renal disease; Z99.2 - Dependence on renal dialysis Status: Chronic Assessment and Plan: Patient does home dialysis. states HD has been going well at home. Nephrology following. Tolerated HD well 10/22/19 and plan for dialysis today (did not receive HD on 10/22). Appreciate Nephrology input. (7) Nausea and vomiting: Qualifiers: Vomiting Intractability: non-intractable Vomiting type: unspecified Qualified Code(s): R11.2 - Nausea with vomiting, unspecified Code(s): R11.2 - Nausea with vomiting, unspecified Status: Acute Assessment and Plan: [place] related to above. Symptoms resolved. Patient eating and tolerating it well. (8) Diabetes: Qualifiers: Diabetes mellitus complication status: without complication Diabetes mellitus buttermaker continuous churn insulin use: with buttermaker continuous churn use Diabetes mellitus type: type 2 Qualified Code(s): E11.9 - Type 2 diabetes mellitus without complications; Z79.4 - long term acute care registered nurse (current) use of insulin Code(s): E11.9 - Type 2 diabetes mellitus without complications Status: Chronic Assessment and Plan: A1c 9.0 in March. Glucose in the 400 on admission. Glucose reviewed on 10/24/19 and better controlled today. Will monitor closely for now with Accu-Cheks and sliding scale protocol. Hypoglycemia protocol available as needed. Continue Lantus at night. (9) Hypertension: Qualifiers: Hypertension type: unspecified Qualified Code(s): I10 - Essential (primary) hypertension Code(s): I10 - Essential (primary) hypertension Status: Chronic Assessment and Plan: Blood pressure reviewed on 10/24/2019. Blood pressure still mildly elevated at times. Metoprolol and clonidine currently on hold. Consider using Norvasc if needed. Continue to monitor. Still on Lasix.
--- NOTE | 2019-10-24 14:02 | PM.PNNEP ---
Progress Note: A&P Assessment and Plan (1) ESRD on hemodialysis: Code(s): N18.6 - End stage renal disease; Z99.2 - Dependence on renal dialysis Status: Chronic Assessment and Plan: The patient is on hemodialysis at home. hemodialysis today (2) Abdominal pain: Qualifiers: Abdominal location: unspecified location Qualified Code(s): R10.9 - Unspecified abdominal pain Code(s): R10.9 - Unspecified abdominal pain Status: Acute Assessment and Plan: improved. (3) Hyperkalemia: Code(s): E87.5 - Hyperkalemia Status: Acute Assessment and Plan: Potassium was high. It has been fine since admission. (4) Bradycardia: Code(s): R00.1 - Bradycardia, unspecified Status: Acute Assessment and Plan: Heart rate is low from a combination of things including clonidine, metoprolol, and potassium. HR better today , 57 last check. (5) Acute respiratory failure: Qualifiers: Respiratory failure complication: hypoxia and hypercapnia Qualified Code(s): J96.01 - Acute respiratory failure with hypoxia; J96.02 - Acute respiratory failure with hypercapnia Code(s): J96.00 - Acute respiratory failure, unspecified whether with hypoxia or hypercapnia Status: Acute Assessment and Plan: Patient Had an apnea link. She will need to get formal sleep study and get on a CPAP mask at home discussed with Dr. Mcgowan Subjective Date/time seen: 10/24/19 14:02 Interval history: alert, fees okay on nasal cannula only now. Apnea link showed severe sleep apnea. belly is better . Due for dialysis today. Review of Systems Cardiovascular: Cardiovascular: Reports no additional cardiovascular complaints Respiratory: Respiratory: Reports no additional respiratory complaints Gastrointestinal: Gastrointestinal: Reports no additional gastrointestinal complaints Genitourinary: Genitourinary: Reports no additional female genitourinary complaints Exam Narrative: Exam Narrative: WDWN in NAD skin no rash Or subcu nodules head ncat lungs clear cor reg no rub or gallop abd BS+ nontender and soft ext no edema. no cyanosis Objective Data Vital Signs Vital Signs: Vital Signs - 24 hr 10/23/19 16:00 10/23/19 16:30 10/23/19 18:00 Temperature 36.2 C L Pulse Rate 55 L 55 L 55 L Respiratory Rate 20 Blood Pressure 147/46 H Pulse Oximetry 100 07/08/20 20:00 10/23/19 21:45 10/23/19 22:00 Temperature 36.5 C Pulse Rate 55 L 57 L 48 L Respiratory Rate 18 18 Blood Pressure 129/40 L Pulse Oximetry 98 97 10/24/19 00:00 10/24/19 01:57 10/24/19 04:00 Temperature 36.9 C Pulse Rate 55 L 56 L 54 L Respiratory Rate 18 20 Blood Pressure 138/46 L Pulse Oximetry 89 L 100 10/24/19 05:47 10/24/19 08:00 10/24/19 10:00 Temperature 35.6 C L Pulse Rate 60 59 L 59 L Respiratory Rate 12 Blood Pressure 167/51 H Pulse Oximetry 99 10/24/19 12:00 Temperature 36.3 C L Pulse Rate 57 L Respiratory Rate 16 Blood Pressure 150/47 H Pulse Oximetry 100 Intake/Output Intake/Output: Intake & Output 10/21/19 10/22/19 10/23/19 10/24/19 23:59 23:59 23:59 23:59 Intake Total 50 870 720 Output Total 1700 350 600 Balance -1650 520 120 Meds/Results Medications: Active Medications Generic Name Dose Route Start Last Admin Trade Name Freq PRN Reason Stop Dose Admin Acetaminophen 650 mg 10/22/19 00:31 10/23/19 13:42 Tylenol Tablet PO 650 mg Q4H PRN Administration Mild Pain (1-3) or Fever Hydrocodone Bitart/Acetaminophen 1 tab 10/22/19 00:31 10/22/19 01:26 [place] 5-325 Mg PO 1 tab Q4H PRN Administration Moderate Pain (4-6) Aspirin 162 mg 10/22/19 09:00 10/24/19 08:11 Aspirin Ec PO 162 mg DAILY KASSIDY Administration Atorvastatin Calcium 40 mg 10/22/19 09:00 10/24/19 08:10 Lipitor PO 40 mg DAILY KASSIDY Administration Calcitriol 0.2
--- NOTE | 2019-10-24 15:17 | PM.PNCARD ---
Progress Note: A&P Assessment and Plan (1) Bradycardia: Code(s): R00.1 - Bradycardia, unspecified Status: Acute Assessment and Plan: Sinus bradycardia with sinus pause, longest to 4.2 seconds with transient junctional recovery prior to resuming SB. No high grade AV block thus far. Secondary to metoprolol, clonidine, electrolyte imbalance, apnea. Heart rates remain in the 50s to 60s. Transient episode of atrial fibrillation 10/23/2019. No further atrial fibrillation on telemetry thus far. Continue to [place]. 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 Potassium 7.9 on admission. Today 4.2 Dialysis today. Metoprolol and clonidine were discontinued. Last doses were on 10/20/2019. Blood pressure has been acceptable. Apnea link completed. Desaturations noted. Lowest desaturation 57%. AHI 41. ALEX oxygen desaturation index 35. Will need formal sleep study and titration of BiPAP. Continue telemetry monitoring, monitoring electrolytes and continuous O2 sat. (2) Apnea: Code(s): R06.81 - Apnea, not elsewhere classified Status: Acute Assessment and Plan: Apnea link as above. Should be using BiPAP when sleeping (3) Hyperkalemia: Code(s): E87.5 - Hyperkalemia Status: Acute Assessment and Plan: Resolved (4) CAD (coronary artery disease): Qualifiers: Coronary Disease-Associated Artery/Lesion type: [place] artery [place] vs. transplanted heart: [place] heart Associated angina: without angina Qualified Code(s): I25.10 - Atherosclerotic heart disease of [place] coronary artery without angina pectoris Code(s): I25.10 - Atherosclerotic heart disease of [place] coronary artery without angina pectoris Status: Acute Assessment and Plan: Continue aspirin, statin, clopidogrel Beta-julissa and clonidine on hold due to bradycardia. No ischemic symptoms today. 2D echo: EF lower limits normal 50-55% mild , severe pulmonary hypertension RVSP 78 mm Hg, moderate tricuspid regurgitation. (5) Altered mental status: Qualifiers: Altered mental status type: somnolence Qualified Code(s): R40.0 - Somnolence Code(s): R41.82 - Altered mental status, unspecified Status: Acute Assessment and Plan: Alert today. (6) ESRD on hemodialysis: Code(s): N18.6 - End stage renal disease; Z99.2 - Dependence on renal dialysis Status: Chronic Assessment and Plan: Reportedly compliant with home dialysis Monday through Monday. Management per Nephrology. Hemodialysis today (7) Elevated LFTs: Code(s): R79.89 - Other specified abnormal findings of blood chemistry Status: Acute Assessment and Plan: Acute transaminitis. GI following. Hepatitis serologies Negative although positive to hep B surface antibody presumed immunity. (8) Abdominal pain: Qualifiers: Abdominal location: unspecified location Qualified Code(s): R10.9 - Unspecified abdominal pain Code(s): R10.9 - Unspecified abdominal pain Status: Acute Assessment and Plan: Per primary service. CT findings noted. (9) Anemia in chronic kidney disease, on chronic dialysis: Code(s): N18.6 - End stage renal disease; D63.1 - Anemia in chronic kidney disease; Z99.2 - Dependence on renal dialysis Status: Chronic Assessment and Plan: Chronic, stable Additional Plan She follows with Dr Nathaniel [facility]. Plan discussed with Dr Santana [id number] 10/24/2019 Subjective Date/time seen: 10/24/19 15:17 Interval history: Follow-up for: Sinus janine
[2019-10-24] MEDS: EPOETIN ALFA-EPBX 10,000 UNITS/ML VIAL 10000 UNITS IV PUSH (16:23)
[2019-10-24 18:17] LABS: Glucose Point of Care 117 (65-105)
[2019-10-24] MEDS: INSULIN GLARGINE (*BKC) 100 UNITS/ML 50 UNITS SUB-Q (20:12)
[2019-10-24 20:59] LABS: Glucose Point of Care 180 (65-105)
[2019-10-25] VITALS (17 sets, daily range): BP systolic 144–178; BP diastolic 37–93; PULSE 59–121; RESP 12–22; TEMP 35.8–36.8; O2SAT 90–100
[2019-10-25] MEDS: ACETAMINOPHEN 325 MG TABLET 650 MG PO ×2 (00:26→18:58)
[2019-10-25 03:53] LABS: Ceruloplasmin 37 mg/dL (18-53)
[2019-10-25 05:05] LABS: Hematocrit 27.6 % (37.0-47.0); Hemoglobin 8.7 g/dL (12.0-15.0); Mean Corpuscular HGB Conc 31.5 g/dl (32-36); Mean Corpuscular Hemoglobin 30.2 pg (26-34); Mean Corpuscular Volume 95.8 fl (80-100); Mean Platelet Volume 11.4 fl (7.4-10.4); Platelet Count Result 142 k/mm3 (150-375); Red Blood Count 2.88 M/mm3 (4.2-5.4); Red Cell Distribution Width 13.2 % (11.5-14.5); White Blood Count 4.8 K/mm3 (4.5-10.0)
[2019-10-25 05:25] LABS: Albumin Level 3.2 g/dL (3.5-5.1); Alkaline Phosphatase 54 U/L (38-126); Aspartate Amino Transferase 545 U/L (14-36); Blood Urea Nitrogen 31 mg/dL (7-17); Calcium 8.2 mg/dL (8.4-10.2); Carbon Dioxide 32 mmol/L (22-30); Chloride 93 mmol/L (98-107); Estimated CRCL calculation 16 ml/min; Estimated Glomerular Filt Rate 11; Glucose 123 mg/dL (65-105); Magnesium 1.8 mg/dL (1.6-2.3); Phosphorus 3.9 mg/dL (2.5-4.5); Sodium 132 mmol/L (137-145)
[2019-10-25 05:55] LABS: Alanine Aminotransferase 935 U/L (4-35)
--- NOTE | 2019-10-25 07:11 | WPDGIPROGNO ---
Progress Note: A&P Additional Plan Patient alert and comfortable at present. Using CPAP mask at night. Patient denies any abdominal pain. Physical exam reveals patient to be alert. She is anicteric. Lungs are clear. Heart without murmur. Abdomen is obese. Soft and nontender. Labs reveal decline in LFTs. AST 545, ALT 935, BUN 31, creatinine 4.1, Impression 1. Elevated LFTs consistent with resolving shock liver. Would suggest continuing to monitor LFTs after discharge until they normalize. No additional GI workup anticipated at this time. 2. End-stage renal disease on dialysis. 3. Resolved abdominal pain. Nonspecific findings on CT scan suggested mesenteric inflammation. Protonix is given empirically. Patient on antibiotics for UTI per 4. UTI. On antibiotics which may help cover nonspecific etiology for mesenteric inflammation. 5. Atrial fibrillation. Episode of sinus bradycardia. Patient now followed by Cardiology appears to be improving. Likely this was the etiology for low blood pressure and her shock liver. Now improved Subjective Date/time seen: 10/25/19 07:11 Objective Data Vital Signs Vital Signs: Vital Signs - 24 hr 10/24/19 08:00 10/24/19 10:00 10/24/19 12:00 Temperature 96.1 F L 97.3 F L Pulse Rate 59 L 59 L 59 L Respiratory Rate 12 16 Blood Pressure 167/51 H 150/47 H Pulse Oximetry 99 100 10/24/19 13:40 10/24/19 13:56 10/24/19 14:00 Temperature 97.4 F L Pulse Rate 59 L 58 L 59 L Respiratory Rate 16 Blood Pressure 162/69 H 167/74 H 158/71 H Pulse Oximetry 10/24/19 14:15 10/24/19 14:30 10/24/19 14:45 Temperature Pulse Rate 57 L 57 L 58 L Respiratory Rate Blood Pressure 159/67 H 155/58 H 123/62 Pulse Oximetry 10/24/19 15:00 10/24/19 15:15 10/24/19 15:30 Temperature Pulse Rate 57 L 66 58 L Respiratory Rate Blood Pressure 154/69 H 149/52 H 159/62 H Pulse Oximetry 10/24/19 15:45 10/24/19 16:00 10/24/19 16:15 Temperature 97.8 F Pulse Rate 58 L 64 88 Respiratory Rate 20 Blood Pressure 149/67 H 159/46 H 166/65 H Pulse Oximetry 98 10/24/19 16:30 10/24/19 16:45 10/24/19 17:00 Temperature Pulse Rate 59 L 60 58 L Respiratory Rate Blood Pressure 156/63 H 139/62 168/63 H Pulse Oximetry 10/24/19 17:15 10/24/19 17:18 10/24/19 17:26 Temperature Pulse Rate 58 L 59 L 58 L Respiratory Rate 18 Blood Pressure 162/64 H 157/65 H Pulse Oximetry 97 10/24/19 17:31 10/24/19 18:00 10/24/19 19:27 Temperature 97.5 F L Pulse Rate 62 67 65 Respiratory Rate 20 18 Blood Pressure 162/65 H Pulse Oximetry 97 10/24/19 20:00 10/24/19 22:00 10/25/19 00:00 Temperature 97.3 F L 97.0 F L Pulse Rate 63 60 62 Respiratory Rate 20 20 Blood Pressure 133/49 L 146/75 H Pulse Oximetry 90 97 10/25/19 01:44 10/25/19 02:00 10/25/19 03:56 Temperature Pulse Rate 59 L 62 60 Respiratory Rate 16 16 Blood Pressure Pulse Oximetry 100 100 10/25/19 04:00 10/25/19 05:37 Temperature Pulse Rate 59 L 61 Respiratory Rate 20 Blood Pressure 144/37 H Pulse Oximetry 98 Intake/Output Intake/Output: Intake & Output 10/22/19 10/23/19 10/24/19 10/25/19 23:59 23:59 23:59 23:59 Intake Total 50 870 1200 Output Total 7567 596 6440 Balance -1650 520 -2700 Meds/Results Medications: Active Medications Generic Name Dose Route Start Last Admin Trade Name Freq PRN Reason Stop Dose Admin Acetaminophen 650 mg 10/22/19 00:31 10/25/19 00:26 Tylenol Tablet PO 650 mg Q4H PRN Administration Mild Pain (1-3) or Fever Hydrocodone Bitart/Acetaminophen 1 tab 10/22/19 00:31 10/22/19 01:26 [place] 5-325 Mg PO 1 tab Q4H PRN Administration Moderate Pain (4-6) Aspirin 162 mg 10/22/19 09:00 10/24/19 08:11 Aspirin Ec PO 162 mg DAILY KASSIDY Administration Atorvastatin Calcium 40 mg 10/22/19 09:00 07/09/20 08:10 Lipitor PO 40 mg DAILY KASSIDY Administration Calcitriol 0.
[2019-10-25 08:34] LABS: Glucose Point of Care 120 (65-105)
[2019-10-25] MEDS: SEVELAMER CARBONATE 800 MG TABLET PO ×3 (09:20→16:52)
[2019-10-25] MEDS: GABAPENTIN 400 MG CAPSULE PO ×3 (09:20→16:52)
[2019-10-25] MEDS: ATORVASTATIN 40 MG TABLET PO (09:20)
[2019-10-25] MEDS: FENOFIBRATE,MICRONIZED 48 MG TABLET PO (09:20)
[2019-10-25] MEDS: CHOLECALCIFEROL 1,000 UNIT TABLET 4000 UNITS PO (09:20)
[2019-10-25] MEDS: FUROSEMIDE 80 MG TABLET PO (09:21)
[2019-10-25] MEDS: ESCITALOPRAM OXALATE 10 MG TABLET PO (09:21)
[2019-10-25] MEDS: CLOPIDOGREL BISULFATE 75 MG TABLET PO (09:21)
[2019-10-25] MEDS: ASPIRIN 81 MG ENTERIC TABLET 162 MG PO (09:21)
[2019-10-25] MEDS: PANTOPRAZOLE 40 MG TABLET PO ×2 (09:21→20:49)
[2019-10-25] MEDS: calcitrioL 0.25 MCG CAPSULE PO (09:21)
[2019-10-25] MEDS: VITAMIN B CMPLX/VIT C/FOLIC AC 1 CAPSULE 1 CAP PO (09:22)
[2019-10-25] MEDS: polyethylene glycoL 3350 17 GM POWD.PACK PO (09:22)
--- NOTE | 2019-10-25 10:03 | PM.PNCARD ---
Progress Note: A&P Assessment and Plan (1) Bradycardia: Code(s): R00.1 - Bradycardia, unspecified Status: Acute Assessment and Plan: Sinus bradycardia with sinus pause, longest to 4.2 seconds with transient junctional recovery prior to resuming SB. No high grade AV block noted on telemetry during this day. Secondary to metoprolol, clonidine, electrolyte imbalance, apnea. Heart rates remain in the 50s to 60s. Transient episode of atrial fibrillation 10/23/2019. No further atrial fibrillation on telemetry Ten beat run of wide complex tachycardia at a rate of 100 during dialysis yesterday. No symptoms. Remained in sinus bradycardia greater than 50 beats per minute overnight. Potassium 7.9 on admission. Today potassium 4.0. Magnesium 1.8 Dialysis yesterday Metoprolol and clonidine were discontinued. Last doses were on 10/20/2019. Blood pressure part have been acceptable. Would avoid any AV danielel blocking agents. Apnea link: Desaturations noted. Lowest desaturation 57%. AHI 41. ALEX oxygen desaturation index 35. Slept much better with no desaturations overnight on BiPAP. (2) Apnea: Code(s): R06.81 - Apnea, not elsewhere classified Status: Acute Assessment and Plan: Stressed that she should be using BiPAP when sleeping. (3) Hyperkalemia: Code(s): E87.5 - Hyperkalemia Status: Acute Assessment and Plan: Resolved (4) CAD (coronary artery disease): Qualifiers: Associated angina: without angina Coronary Disease-Associated Artery/Lesion type: [place] artery [place] vs. transplanted heart: [place] heart Qualified Code(s): I25.10 - Atherosclerotic heart disease of [place] coronary artery without angina pectoris Code(s): I25.10 - Atherosclerotic heart disease of [place] coronary artery without angina pectoris Status: Acute Assessment and Plan: Continue aspirin, statin, clopidogrel Beta-julissa and clonidine stopped due to bradycardia No ischemic symptoms. 2D echo: EF lower limits normal 50-55% mild , severe pulmonary hypertension RVSP 78 mm Hg, moderate tricuspid regurgitation. Treatment of her sleep apnea is imperative. (5) Altered mental status: Qualifiers: Altered mental status type: somnolence Qualified Code(s): R40.0 - Somnolence Code(s): R41.82 - Altered mental status, unspecified Status: Acute Assessment and Plan: Resolved (6) ESRD on hemodialysis: Code(s): N18.6 - End stage renal disease; Z99.2 - Dependence on renal dialysis Status: Chronic Assessment and Plan: Reportedly compliant with home dialysis Monday through Monday. Management per Nephrology. (7) Elevated LFTs: Code(s): R79.89 - Other specified abnormal findings of blood chemistry Status: Acute Assessment and Plan: Acute transaminitis. GI following. Hepatitis serologies Negative although positive to hep B surface antibody presumed immunity. (8) Abdominal pain: Qualifiers: Abdominal location: unspecified location Qualified Code(s): R10.9 - Unspecified abdominal pain Code(s): R10.9 - Unspecified abdominal pain Status: Acute Assessment and Plan: Per primary service. CT findings noted. (9) Anemia in chronic kidney disease, on chronic dialysis: Code(s): N18.6 - End stage renal disease; D63.1 - Anemia in chronic kidney disease; Z99.2 - Dependence on renal dialysis Status: Chronic Assessment and Plan: Chronic, stable Additional Plan She follows with Dr Nathaniel [facility]. She is to call and make an appointment to see him within the next 1-2 weeks She has an ap
[2019-10-25 12:33] LABS: Glucose Point of Care 172 (65-105)
--- NOTE | 2019-10-25 15:52 | PM.PNNEP ---
Progress Note: A&P Assessment and Plan (1) ESRD on hemodialysis: Code(s): N18.6 - End stage renal disease; Z99.2 - Dependence on renal dialysis Status: Chronic Assessment and Plan: She had hemodialysis yesterday. It went well. Due for dialysis again tomorrow. (2) Abdominal pain: Qualifiers: Abdominal location: unspecified location Qualified Code(s): R10.9 - Unspecified abdominal pain Code(s): R10.9 - Unspecified abdominal pain Status: Acute Assessment and Plan: This is resolved. Dr. leslie is seeing the patient. CT showed mesenteric inflammation, fatty infiltration of the liver, Liver enzymes were elevated. Possibly shock liver. Patient had a UTI as well and that is being treated. (3) Hyperkalemia: Code(s): E87.5 - Hyperkalemia Status: Acute Assessment and Plan: Potassium was high. It is unclear why this was so high. Possibly due to inflammation? Resorption of potassium from stools? (4) Bradycardia: Code(s): R00.1 - Bradycardia, unspecified Status: Acute Assessment and Plan: Heart rate is low from a combination of things including clonidine, metoprolol, and potassium. HR better today , 69 at 2:00 p.m. (5) Acute respiratory failure: Qualifiers: Respiratory failure complication: hypoxia and hypercapnia Qualified Code(s): J96.01 - Acute respiratory failure with hypoxia; J96.02 - Acute respiratory failure with hypercapnia Code(s): J96.00 - Acute respiratory failure, unspecified whether with hypoxia or hypercapnia Status: Acute Assessment and Plan: Patient Had an apnea link. She will need to get formal sleep study and get on a CPAP mask at home Subjective Date/time seen: 10/25/19 15:52 Interval history: alert, fees okay No more belly pain. Eating fine. Review of Systems Cardiovascular: Cardiovascular: Reports no additional cardiovascular complaints Respiratory: Respiratory: Reports no additional respiratory complaints Gastrointestinal: Gastrointestinal: Reports no additional gastrointestinal complaints Genitourinary: Genitourinary: Reports no additional female genitourinary complaints Exam Narrative: Exam Narrative: WDWN in NAD skin no rash Or subcu nodules head ncat lungs clear bilaterally cor reg no rub or gallop abd BS+ nontender and soft ext no edema Objective Data Vital Signs Vital Signs: Vital Signs - 24 hr 10/24/19 16:00 10/24/19 16:15 10/24/19 16:30 Temperature 36.6 C Pulse Rate 64 88 59 L Respiratory Rate 20 Blood Pressure 159/46 H 166/65 H 156/63 H Pulse Oximetry 98 10/24/19 16:45 10/24/19 17:00 10/24/19 17:15 Temperature Pulse Rate 60 58 L 58 L Respiratory Rate Blood Pressure 139/62 168/63 H 162/64 H Pulse Oximetry 10/24/19 17:18 10/24/19 17:26 10/24/19 17:31 Temperature 36.4 C L Pulse Rate 59 L 58 L 62 Respiratory Rate 18 20 Blood Pressure 157/65 H 162/65 H Pulse Oximetry 97 10/24/19 18:00 10/24/19 19:27 10/24/19 20:00 Temperature 36.3 C L Pulse Rate 67 65 63 Respiratory Rate 18 20 Blood Pressure 133/49 L Pulse Oximetry 97 90 10/24/19 22:00 10/25/19 00:00 10/25/19 01:44 Temperature 36.1 C L Pulse Rate 60 62 59 L Respiratory Rate 20 16 Blood Pressure 146/75 H Pulse Oximetry 97 100 10/25/19 02:00 10/25/19 03:56 10/25/19 04:00 Temperature Pulse Rate 62 60 59 L Respiratory Rate 16 20 Blood Pressure 144/37 H Pulse Oximetry 100 98 10/25/19 05:37 10/25/19 08:00 10/25/19 10:00 Temperature 35.8 C L Pulse Rate 61 62 67 Respiratory Rate 12 Blood Pressure 173/67 H Pulse Oximetry 96 10/25/19 12:00 10/25/19 14:00 Temperature 36.5 C Pulse Rate 67 69 Respiratory Rate 20 Blood Pressure 178/58 H Pulse Oximetry 92 Intake/Output Intake/Output: Intake & Output 10/22/19 10/23/19 10/24/19 10/25/19 23:59 23:59 23:59 23:59 Intake Total 50
--- NOTE | 2019-10-25 15:57 | PCRCNOTE ---
REQUESTING PT HAVE CPAP UNIT PRIOR TO DISCHARGE HOME. I HAVE ENTERED TELEPHONE ORDER READ BACK FROM DR MENA FOR CPAP UNIT WITH 2L BLEED IN. AWAITING CHART NOTES WITH SUPPORTING DOCUMENTATION OF NEED WELL DIAGNOSIS BEFORE IT CAN BE FAXED TO [employer], [employer]. ONCE FAXED, THEY WILL SUBMIT TO MEDICARE FOR APPROVAL, THEN BRING OUT CPAP UNIT. SPOKE TO DR MENA AND NICK TUBBS IN REGARD TO TIMELINE, THIS WILL MOST LIKELY NOT BE APPROVED UNTIL FRIDAY 10/27.
[2019-10-25] MEDS: INSULIN ASPART (*BKC) 100 UNITS/ML SUB-Q (16:57)
--- NOTE | 2019-10-25 17:00 | PM.IMPN ---
Progress Note: A&P Assessment and Plan (1) Bradycardia: Code(s): R00.1 - Bradycardia, unspecified Status: Acute Assessment and Plan: HR dropped into the 40's with cardiac pause of 4.2sec. Most likely related to her Toprol, clonidine and undiagnosed sleep apnea. EKG reviewed and showing no change except rate slower. Metoprolol and clonidine have been stopped. TSH normal. (2) Atrial fibrillation with rapid ventricular response: Code(s): I48.91 - Unspecified atrial fibrillation Status: Acute Assessment and Plan: Patient also had a transient episode of atrial fibrillation on 10/23/19. This was discussed with Cardiology at the time. No plans for rate controlling agents due to pause and no anticoagulation. Continue to monitor on tele. Cardiology has signed off. Called to the room this evening due to tachycardia and CP. Patient having burning substermnal chest pain and monitor showing AFib/RVR with rate on 120's mostly. EKG showing AFib/RVR with worsening ST depression in the anterior lateral leads. CP was 10/10. BP 173/93. NTG x 1 given and CP decreased to 1-2/10 on repeat evaluation before resolving. Patient converted back to NSR. Will notify cardiology so they can plan to see her in the morning. [id number] score = 7. No hx of peptic ulcers or acute blood loss. She does have the focal peritonitis as mentioned below and currnelty on PPI. Hgb 10.3 on admission but stable in the 8-9 range past few days. Plt 142K. Will give one dose of Lovenox and reassess in the morning. 38 minutes spent on critical care time: concern for unstable angina and new cardiac dysrhythmia that could have deteriorated. (3) Hyperkalemia: Code(s): E87.5 - Hyperkalemia Status: Acute Assessment and Plan: Etiology unclear on why her potassium was so high. Potassium remaining normal now. Continue hemodialysis to control potassium. (4) Apnea: Code(s): R06.81 - Apnea, not elsewhere classified Status: Acute Assessment and Plan: Patient has undiagnosed sleep apnea. ABG showing pH 7.30, pCO2 49.7 and pO2 110 on 2L. AHI 41 and RI 43. Patient required 2L O2 overnight during the test because she dropped her O2 to 54%. She is tolerating the auto-BiPAP. Respiratory therapy has been contacted and we are arranging for self titrating CPAP with 2L O2 bleed in. She will need a formal sleep study once COVID precautions have been lifted. (5) Abdominal pain: Qualifiers: Abdominal location: unspecified location Qualified Code(s): R10.9 - Unspecified abdominal pain Code(s): R10.9 - Unspecified abdominal pain Status: Acute Assessment and Plan: Patient with diffuse abdominal pain on admission which is better. CT scan showing stranding of the upper abdominal peritoneum and mesentery adjacent to the stomach and duodenum. Lipase is normal. LFTs elevated with AST 1843 and ALT to 1408. Levels better today and continue to trend down. Hepatitis panel negative. Etiology unclear but felt related to localized peritonitis - PUD?. Continue Protonix for now. Appreciate GI input. (6) Elevated LFTs: Code(s): R79.89 - Other specified abnormal findings of blood chemistry Status: Acute Assessment and Plan: As above. (7) ESRD on hemodialysis: Code(s): N18.6 - End stage renal disease; Z99.2 - Dependence on renal dialysis Status: Chronic Assessment and Plan: Patient does home dialysis M-F. states HD has been going well at home. Nephrology following. Tolerated HD well 10/22/19 and 10/24/19. Appreciate Nephrology input. (8) Nausea and vomiting: Qualifiers: Vomiting Intractability: non-intractable Vomiting type: unspecified Qualified Code(s): R11.2 - Nausea with vomiting, unspecified Code(s): R11.2 - Nausea with vomiting, unspecified Status: Acute Assessment and Plan: [place] re
[2019-10-25 17:35] LABS: Glucose Point of Care 262 (65-105)
--- NOTE | 2019-10-25 18:34 | ECG_ITS ---
Measurements Intervals [place] Rate: 115 P: MS: 0 QRS: 4 QRSD: 106 T: 151 QT: 344 QTc: 477 Interpretive Statements ATRIAL FLUTTER/TACHYCARDIA WITH RAPID VENTRICULAR RESPONSE ST-T WAVE ABNORMALITY IN ANTEROLAT/HIGH LAT LEADS- CONSIDER ISCHEMIA ABNORMAL ECG Electronically Signed On 10-26-2019 11:59:11 CDT by Paulo Silva D.O.
[2019-10-25] MEDS: NITROGLYCERIN SL 0.4 MG TABLET SUBLINGUAL (18:36)
[2019-10-25] MEDS: ENOXAPARIN 100 MG/ML SYRINGE SUB-Q (19:52)
[2019-10-25 20:03] LABS: Glucose Point of Care 263 (65-105)
[2019-10-25] MEDS: INSULIN GLARGINE (*BKC) 100 UNITS/ML 50 UNITS SUB-Q (20:49)
[2019-10-26] VITALS (33 sets, daily range): BP systolic 146–203; BP diastolic 49–94; PULSE 61–90; RESP 18–20; TEMP 35.8–37; O2SAT 95–100
[2019-10-26 04:49] LABS: Hematocrit 28.2 % (37.0-47.0); Hemoglobin 8.8 g/dL (12.0-15.0); Immature Platelet Fraction Pct 6.1 % (0.9-11.2); Mean Corpuscular HGB Conc 31.2 g/dl (32-36); Mean Corpuscular Hemoglobin 30.1 pg (26-34); Mean Corpuscular Volume 96.6 fl (80-100); Mean Platelet Volume 11.9 fl (7.4-10.4); Platelet Count Result 145 k/mm3 (150-375); Red Blood Count 2.92 M/mm3 (4.2-5.4); Red Cell Distribution Width 13.5 % (11.5-14.5); White Blood Count 4.4 K/mm3 (4.5-10.0)
[2019-10-26 05:18] LABS: Alanine Aminotransferase 633 U/L (4-35); Albumin Level 3.2 g/dL (3.5-5.1); Alkaline Phosphatase 60 U/L (38-126); Aspartate Amino Transferase 222 U/L (14-36); Bilirubin,Total 0.8 mg/dL (0.2-1.3); Blood Urea Nitrogen 42 mg/dL (7-17); Calcium 8.6 mg/dL (8.4-10.2); Carbon Dioxide 31 mmol/L (22-30); Chloride 90 mmol/L (98-107); Estimated CRCL calculation 14 ml/min; Estimated Glomerular Filt Rate 9; Glucose 134 mg/dL (65-105); Magnesium 1.9 mg/dL (1.6-2.3); Phosphorus 3.9 mg/dL (2.5-4.5); Potassium 3.8 mmol/L (3.4-5.0); Sodium 130 mmol/L (137-145)
--- NOTE | 2019-10-26 08:19 | PC.NURSE ---
Morning medications to be administered after hemodialysis takes place, in order to ensure efficacy and/or to be therapeutic.Patient in process of being transferred to hemodialysis at this time, 0821 on 10/26/2019.
[2019-10-26 08:39] LABS: Glucose Point of Care 159 (65-105)
[2019-10-26] MEDS: HEPARIN SODIUM 1,000 UNITS/ML VIAL 1000 UNITS IV PUSH (08:52)
[2019-10-26] MEDS: HEPARIN SODIUM 1,000 UNITS/ML VIAL 500 UNITS IV PUSH ×2 (08:55→09:55)
[2019-10-26] MEDS: SEVELAMER CARBONATE 800 MG TABLET PO ×3 (09:08→17:51)
--- NOTE | 2019-10-26 10:13 | PM.IMPN ---
Progress Note: A&P Assessment and Plan (1) Bradycardia: Code(s): R00.1 - Bradycardia, unspecified Status: Acute Assessment and Plan: HR dropped into the 40's with cardiac pause of 4.2sec. Most likely related to her Toprol, clonidine and undiagnosed sleep apnea. Metoprolol and clonidine have been stopped. TSH normal. Toelrating BiPAP. HR stable on telemetry (2) Atrial fibrillation with rapid ventricular response: Code(s): I48.91 - Unspecified atrial fibrillation Status: Acute Assessment and Plan: Patient had a transient episode of atrial fibrillation on 10/23/19. Darlene had a recurrent episode of tachycardia and CP with telemetry showing AFib/RVR with rate into the 120's. EKG showing AFib/RVR with worsening ST depression in the anterior lateral leads. CP was 10/10. BP 173/93. NTG x 1 given and CP resolved. No rate limiting medication due to recent cardiac pause. Patient converted back to NSR. [id number] score = 7. She was given one dose of Lovenox. Maintaining NSR. Repeat EKG. Cardiology re-consulted. (3) Hyperkalemia: Code(s): E87.5 - Hyperkalemia Status: Acute Assessment and Plan: Etiology unclear on why her potassium was so high. Potassium remaining normal now. Continue hemodialysis to control potassium. (4) Apnea: Code(s): R06.81 - Apnea, not elsewhere classified Status: Acute Assessment and Plan: Patient has undiagnosed sleep apnea. ABG showing pH 7.30, pCO2 49.7 and pO2 110 on 2L. AHI 41 and RI 43. Patient required 2L O2 overnight during the test because she dropped her O2 to 54%. She is tolerating the auto-BiPAP. Respiratory therapy has been contacted and we are arranging for self titrating CPAP with 2L O2 bleed in. She will need a formal sleep study once COVID precautions have been lifted. (5) Abdominal pain: Qualifiers: Abdominal location: unspecified location Qualified Code(s): R10.9 - Unspecified abdominal pain Code(s): R10.9 - Unspecified abdominal pain Status: Acute Assessment and Plan: Patient with diffuse abdominal pain on admission which is better. CT scan showing stranding of the upper abdominal peritoneum and mesentery adjacent to the stomach and duodenum. Lipase is normal. LFTs elevated with AST 1843 and ALT to 1408. Levels better today and continue to trend down. Hepatitis panel negative. Etiology unclear but felt related to localized peritonitis - PUD? Hepatitis?. Continue Protonix for now. Appreciate GI input. (6) Elevated LFTs: Code(s): R79.89 - Other specified abnormal findings of blood chemistry Status: Acute Assessment and Plan: As above. (7) ESRD on hemodialysis: Code(s): N18.6 - End stage renal disease; Z99.2 - Dependence on renal dialysis Status: Chronic Assessment and Plan: Patient does home dialysis M-F. states HD has been going well at home. Nephrology following. Tolerated HD well 10/22/19 and 10/24/19. Appreciate Nephrology input. (8) Nausea and vomiting: Qualifiers: Vomiting type: unspecified Vomiting Intractability: non-intractable Qualified Code(s): R11.2 - Nausea with vomiting, unspecified Code(s): R11.2 - Nausea with vomiting, unspecified Status: Acute Assessment and Plan: [place] related to above. Symptoms resolved. Patient eating and tolerating it well. (9) Diabetes: Qualifiers: Diabetes mellitus type: type 2 Diabetes mellitus halfway insulin use: with halfway use Diabetes mellitus complication status: without complication Qualified Code(s): E11.9 - Type 2 diabetes mellitus without complications; Z79.4 - snf (current) use of insulin Code(s): E11.9 - Type 2 diabetes mellitus without complications Status: Chronic Assessment and Plan: A1c 10.5. Glucose in the 400 on admission. Glucose reviewed on 10/26/19 and asim
--- NOTE | 2019-10-26 10:23 | ECG_ITS ---
Measurements Intervals [place] Rate: 69 P: 65 NH: 159 QRS: 33 QRSD: 101 T: 143 QT: 421 QTc: 453 Interpretive Statements SINUS RHYTHM DELAYED PRECORDIAL R/S TRANSITION ST-T WAVE ABNORMALITY IN INF/LAT LEADS- CONSIDER ISCHEMIA ABNORMAL ECG Electronically Signed On 10-26-2019 12:06:16 CDT by Paulo Silva D.O.
[2019-10-26] MEDS: EPOETIN ALFA-EPBX 10,000 UNITS/ML VIAL 10000 UNITS IV PUSH (11:56)
--- NOTE | 2019-10-26 12:45 | PM.PNNEP ---
Progress Note: A&P Assessment and Plan (1) ESRD on hemodialysis: Code(s): N18.6 - End stage renal disease; Z99.2 - Dependence on renal dialysis Status: Chronic Assessment and Plan: She is getting hemodialysis. Her blood pressure is a little bit high. We are going to take a little extra fluid off. She may need more medicine. (2) Abdominal pain: Qualifiers: Abdominal location: unspecified location Qualified Code(s): R10.9 - Unspecified abdominal pain Code(s): R10.9 - Unspecified abdominal pain Status: Acute Assessment and Plan: This is resolved. Dr. leslie is seeing the patient. CT showed mesenteric inflammation, fatty infiltration of the liver, Liver enzymes were elevated. Possibly shock liver. This is gradually improving. Patient had a UTI as well and this was treated. (3) Hyperkalemia: Code(s): E87.5 - Hyperkalemia Status: Acute Assessment and Plan: Potassium was high. It is unclear why this was so high. Possibly due to inflammation? Resorption of potassium from stools? No hyperkalemia since then. (4) Bradycardia: Code(s): R00.1 - Bradycardia, unspecified Status: Acute Assessment and Plan: Heart rate is low from a combination of things including clonidine, metoprolol, and potassium. Heart rate 70 today. (5) Acute respiratory failure: Qualifiers: Respiratory failure complication: hypoxia and hypercapnia Qualified Code(s): J96.01 - Acute respiratory failure with hypoxia; J96.02 - Acute respiratory failure with hypercapnia Code(s): J96.00 - Acute respiratory failure, unspecified whether with hypoxia or hypercapnia Status: Acute Assessment and Plan: Patient Had an apnea link. She will need to get formal sleep study and get on a CPAP mask at home Subjective Date/time seen: 10/26/19 12:45 Interval history: Patient feels better. No belly pain. Eating okay. She is on dialysis and tolerating it well. She was seen at 11:00 a.m. Review of Systems Cardiovascular: Cardiovascular: Reports no additional cardiovascular complaints Respiratory: Respiratory: Reports no additional respiratory complaints Gastrointestinal: Gastrointestinal: Reports no additional gastrointestinal complaints Genitourinary: Genitourinary: Reports no additional female genitourinary complaints Exam Narrative: Exam Narrative: WDWN in NAD skin no rash Or subcu nodules head ncat lungs clear bilaterally cor reg no rub or gallop abd BS+ nontender and soft ext no edema Objective Data Vital Signs Vital Signs: Vital Signs - 24 hr 10/25/19 14:00 10/25/19 16:00 10/25/19 18:00 Temperature 36.8 C Pulse Rate 69 66 121 H Respiratory Rate 18 Blood Pressure 158/49 H Pulse Oximetry 94 10/25/19 18:41 10/25/19 20:00 10/25/19 21:59 Temperature 36.8 C Pulse Rate 100 70 66 Respiratory Rate 22 H Blood Pressure 173/93 H 160/62 H Pulse Oximetry 100 10/25/19 22:45 10/25/19 23:40 10/26/19 00:00 Temperature 36.2 C L Pulse Rate 62 63 61 Respiratory Rate 20 22 H Blood Pressure 149/53 H Pulse Oximetry 98 100 10/26/19 02:00 10/26/19 03:00 10/26/19 03:43 Temperature 36.4 C L Pulse Rate 65 65 64 Respiratory Rate 20 Blood Pressure 149/49 H Pulse Oximetry 99 100 10/26/19 04:00 10/26/19 06:00 10/26/19 08:00 Temperature 35.8 C L Pulse Rate 66 62 65 Respiratory Rate 18 Blood Pressure 150/56 H Pulse Oximetry 100 10/26/19 08:45 10/26/19 08:55 10/26/19 09:00 Temperature 35.8 C L Pulse Rate 71 67 69 Respiratory Rate 20 Blood Pressure 203/94 H 193/89 H 190/86 H Pulse Oximetry 10/26/19 09:15 10/26/19 09:30 10/26/19 09:45 Temperature Pulse Rate 65 66 67 Respiratory Rate Blood Pressure 184/66 H 182/75 H 172/80 H Pulse Oximetry 10/26/19 10:00 10/26/19 10:15 10/26/19 10:30 Temperature Pulse Rate 68 69 69 Respir
[2019-10-26 13:27] LABS: Glucose Point of Care 190 (65-105)
[2019-10-26] MEDS: amLODIPine BESYLATE 5 MG TABLET PO (14:35)
[2019-10-26] MEDS: FENOFIBRATE,MICRONIZED 48 MG TABLET PO (14:36)
[2019-10-26] MEDS: calcitrioL 0.25 MCG CAPSULE PO (14:36)
[2019-10-26] MEDS: PANTOPRAZOLE 40 MG TABLET PO ×2 (14:36→21:39)
[2019-10-26] MEDS: CLOPIDOGREL BISULFATE 75 MG TABLET PO (14:36)
[2019-10-26] MEDS: FUROSEMIDE 80 MG TABLET PO (14:37)
[2019-10-26] MEDS: ESCITALOPRAM OXALATE 10 MG TABLET PO (14:37)
[2019-10-26] MEDS: ASPIRIN 81 MG ENTERIC TABLET 162 MG PO (14:38)
[2019-10-26] MEDS: ATORVASTATIN 40 MG TABLET PO (14:38)
[2019-10-26] MEDS: GABAPENTIN 400 MG CAPSULE PO ×3 (14:38→18:00)
[2019-10-26] MEDS: polyethylene glycoL 3350 17 GM POWD.PACK PO (14:39)
[2019-10-26] MEDS: CHOLECALCIFEROL 1,000 UNIT TABLET 4000 UNITS PO (14:39)
[2019-10-26] MEDS: VITAMIN B CMPLX/VIT C/FOLIC AC 1 CAPSULE 1 CAP PO (14:39)
[2019-10-26] MEDS: INSULIN ASPART (*BKC) 100 UNITS/ML 11 UNITS SUB-Q ×2 (14:42→17:51)
[2019-10-26] MEDS: INSULIN ASPART (*BKC) 100 UNITS/ML SUB-Q (17:51)
[2019-10-26 17:58] LABS: Glucose Point of Care 214 (65-105)
[2019-10-26 21:16] LABS: Glucose Point of Care 119 (65-105)
[2019-10-26] MEDS: INSULIN GLARGINE (*BKC) 100 UNITS/ML 50 UNITS SUB-Q (21:39)
[2019-10-27] VITALS (15 sets, daily range): BP systolic 150–174; BP diastolic 56–87; PULSE 70–120; RESP 17–24; TEMP 36.2–37.3; O2SAT 98–100
--- NOTE | 2019-10-27 02:12 | PC.NURSE ---
This patient, Lencho Guerrero, was received from [facility] on 10/27/19 at 0200. Personal belongings list checked and signed. Patient/family oriented to unit policies and routines
[2019-10-27] MEDS: ACETAMINOPHEN 325 MG TABLET 650 MG PO ×2 (04:23→15:34)
[2019-10-27 05:01] LABS: Hematocrit 32.8 % (37.0-47.0); Hemoglobin 10.2 g/dL (12.0-15.0); Mean Corpuscular HGB Conc 31.1 g/dl (32-36); Mean Corpuscular Hemoglobin 30.1 pg (26-34); Mean Corpuscular Volume 96.8 fl (80-100); Mean Platelet Volume 12.2 fl (7.4-10.4); Platelet Count Result 148 k/mm3 (150-375); Red Blood Count 3.39 M/mm3 (4.2-5.4); Red Cell Distribution Width 13.8 % (11.5-14.5); White Blood Count 6.6 K/mm3 (4.5-10.0)
[2019-10-27] MEDS: GLUCOSE ORAL GEL 15 GM OF GLUCSE IN 37.5 GM TUBE PO (08:04)
[2019-10-27] MEDS: SEVELAMER CARBONATE 800 MG TABLET PO ×3 (08:06→18:01)
[2019-10-27] MEDS: VITAMIN B CMPLX/VIT C/FOLIC AC 1 CAPSULE 1 CAP PO (08:07)
[2019-10-27] MEDS: PANTOPRAZOLE 40 MG TABLET PO ×2 (08:07→20:19)
[2019-10-27] MEDS: polyethylene glycoL 3350 17 GM POWD.PACK PO (08:07)
[2019-10-27] MEDS: CHOLECALCIFEROL 1,000 UNIT TABLET 4000 UNITS PO (08:07)
[2019-10-27] MEDS: ASPIRIN 81 MG ENTERIC TABLET 162 MG PO (08:07)
[2019-10-27] MEDS: amLODIPine BESYLATE 5 MG TABLET PO (08:08)
[2019-10-27] MEDS: GABAPENTIN 400 MG CAPSULE PO ×3 (08:08→18:02)
[2019-10-27] MEDS: FENOFIBRATE,MICRONIZED 48 MG TABLET PO (08:09)
[2019-10-27] MEDS: FUROSEMIDE 80 MG TABLET PO (08:09)
[2019-10-27] MEDS: ESCITALOPRAM OXALATE 10 MG TABLET PO (08:09)
[2019-10-27] MEDS: ATORVASTATIN 40 MG TABLET PO (08:09)
[2019-10-27] MEDS: CLOPIDOGREL BISULFATE 75 MG TABLET PO (08:09)
[2019-10-27] MEDS: calcitrioL 0.25 MCG CAPSULE PO (08:10)
[2019-10-27 08:29] LABS: Glucose Point of Care 62 (65-105)
[2019-10-27 08:54] LABS: Albumin Level 3.3 g/dL (3.5-5.1); Blood Urea Nitrogen 26 mg/dL (7-17); Calcium 8.7 mg/dL (8.4-10.2); Carbon Dioxide 34 mmol/L (22-30); Chloride 95 mmol/L (98-107); Estimated CRCL calculation 18 ml/min; Estimated Glomerular Filt Rate 12; Glucose 73 mg/dL (65-105); Magnesium 1.9 mg/dL (1.6-2.3); Potassium 3.9 mmol/L (3.4-5.0); Sodium 136 mmol/L (137-145)
--- NOTE | 2019-10-27 10:49 | PM.PNNEP ---
Progress Note: A&P Assessment and Plan (1) ESRD on hemodialysis: Code(s): N18.6 - End stage renal disease; Z99.2 - Dependence on renal dialysis Status: Chronic Assessment and Plan: She had dialysis yesterday and did well. (2) Abdominal pain: Qualifiers: Abdominal location: unspecified location Qualified Code(s): R10.9 - Unspecified abdominal pain Code(s): R10.9 - Unspecified abdominal pain Status: Acute Assessment and Plan: This is resolved. Dr. leslie is seeing the patient. CT showed mesenteric inflammation, fatty infiltration of the liver, Liver enzymes were elevated. Possibly shock liver. This is gradually improving. They are in the range of around 200 Patient had a UTI as well and this was treated. (3) Hyperkalemia: Code(s): E87.5 - Hyperkalemia Status: Acute Assessment and Plan: Potassium was high. It is unclear why this was so high. Possibly due to inflammation? Resorption of potassium from stools? No hyperkalemia since then. (4) Bradycardia: Code(s): R00.1 - Bradycardia, unspecified Status: Acute Assessment and Plan: Heart rate is low from a combination of things including clonidine, metoprolol, and potassium. Is up and down. (5) Acute respiratory failure: Qualifiers: Respiratory failure complication: hypoxia and hypercapnia Qualified Code(s): J96.01 - Acute respiratory failure with hypoxia; J96.02 - Acute respiratory failure with hypercapnia Code(s): J96.00 - Acute respiratory failure, unspecified whether with hypoxia or hypercapnia Status: Acute Assessment and Plan: Patient Had an apnea link. She will need to get formal sleep study and get on a CPAP mask at home Subjective Date/time seen: 10/27/19 10:49 Interval history: Patient feels better. No belly pain. Eating okay. Review of Systems Cardiovascular: Cardiovascular: Reports no additional cardiovascular complaints Respiratory: Respiratory: Reports no additional respiratory complaints Gastrointestinal: Gastrointestinal: Reports no additional gastrointestinal complaints Genitourinary: Genitourinary: Reports no additional female genitourinary complaints Exam Narrative: Exam Narrative: WDWN in NAD skin no rash Or subcu nodules head ncat lungs clear bilaterally cor reg no rub or gallop abd BS+ nontender and soft ext no edema or cyanosis Objective Data Vital Signs Vital Signs: Vital Signs - 24 hr 10/26/19 11:00 10/26/19 11:15 10/26/19 11:30 Temperature Pulse Rate 68 68 69 Respiratory Rate Blood Pressure 175/71 H 171/86 H 175/80 H Pulse Oximetry 10/26/19 11:45 10/26/19 12:00 10/26/19 12:15 Temperature 36.2 C L Pulse Rate 69 81 65 Respiratory Rate 20 Blood Pressure 178/68 H 177/56 H 171/68 H Pulse Oximetry 99 10/26/19 12:27 10/26/19 12:35 10/26/19 14:00 Temperature 36.5 C Pulse Rate 66 70 76 Respiratory Rate 18 Blood Pressure 173/81 H 180/82 H Pulse Oximetry 10/26/19 16:00 10/26/19 20:00 10/26/19 21:48 Temperature 36.1 C L 36.4 C L Pulse Rate 87 77 66 Respiratory Rate 20 18 18 Blood Pressure 168/54 H 155/52 H Pulse Oximetry 100 95 98 10/26/19 22:00 10/26/19 22:26 10/26/19 23:41 Temperature 36.8 C Pulse Rate 75 66 71 Respiratory Rate 18 20 Blood Pressure 146/54 H Pulse Oximetry 98 99 10/27/19 00:00 10/27/19 02:00 10/27/19 02:46 Temperature Pulse Rate 71 76 70 Respiratory Rate 17 Blood Pressure Pulse Oximetry 99 10/27/19 03:48 10/27/19 04:00 10/27/19 06:00 Temperature 36.3 C L Pulse Rate 115 H 120 H 72 Respiratory Rate 20 Blood Pressure 152/87 H Pulse Oximetry 100 10/27/19 08:00 Temperature 36.2 C L Pulse Rate 73 Respiratory Rate 20 Blood Pressure 154/58 H Pulse Oximetry 100 Intake/Output Intake/Output: Intake & Output 10/24/19 10/25/19 10/26/19 10/27/19 23:59 23:59 23:
[2019-10-27 12:05] LABS: Glucose Point of Care 150 (65-105)
--- NOTE | 2019-10-27 12:23 | PM.IMPN ---
Progress Note: A&P Assessment and Plan (1) Atrial fibrillation with rapid ventricular response: Code(s): I48.91 - Unspecified atrial fibrillation Status: Acute Assessment and Plan: Patient had a transient episode of atrial fibrillation on 10/23/19. Patient had a recurrent episode of tachycardia and CP on 10/24 with telemetry showing AFib/RVR with rate into the 120's. EKG showing AFib/RVR with worsening ST depression in the anterior lateral leads. CP was 01/24. BP 173/93. NTG x 1 given and CP resolved. No rate limiting medication due to recent cardiac pause. Patient converted back to NSR. Patient has paroxysmal AFib. [id number] score = 7. She was given one dose of Lovenox 10/24 but nothing since. Repeat EKG 10/[address]-T wave changes but less severe. Cardiology has been re-consulted. Will start Eliquis. Stop Plavix and decrease ASA dose to 81mg. Consider adding metoprolol but will discus with cardiology (2) Bradycardia: Code(s): R00.1 - Bradycardia, unspecified Status: Acute Assessment and Plan: HR dropped into the 40's with cardiac pause of 4.2sec. Most likely related to her Toprol, clonidine and undiagnosed sleep apnea. Metoprolol and clonidine have been stopped. Sleep apnea being treated. TSH normal. HR stable on telemetry (3) Hyperkalemia: Code(s): E87.5 - Hyperkalemia Status: Acute Assessment and Plan: Etiology unclear on why her potassium was so high. Potassium remaining normal now. Continue hemodialysis to control potassium. (4) Apnea: Code(s): R06.81 - Apnea, not elsewhere classified Status: Acute Assessment and Plan: Patient has undiagnosed sleep apnea. ABG showing pH 7.30, pCO2 49.7 and pO2 110 on 2L. AHI 41 and RI 43. Patient required 2L O2 overnight during the test because she dropped her O2 to 54%. She is tolerating the auto-BiPAP. Respiratory therapy has been contacted and we are arranging for a self titrating CPAP with 2L O2 bleed in at home. She will need a formal sleep study once COVID precautions have been lifted. (5) Abdominal pain: Qualifiers: Abdominal location: unspecified location Qualified Code(s): R10.9 - Unspecified abdominal pain Code(s): R10.9 - Unspecified abdominal pain Status: Acute Assessment and Plan: Patient with diffuse abdominal pain on admission which is better. CT scan showing stranding of the upper abdominal peritoneum and mesentery adjacent to the stomach and duodenum. Lipase is normal. LFTs elevated with AST 1843 and ALT to 1408. Levels have been trending down. Hepatitis panel negative. Etiology unclear but felt related to localized peritonitis - PUD? Hepatitis?. Continue Protonix for now. Appreciate GI input. (6) Elevated LFTs: Code(s): R79.89 - Other specified abnormal findings of blood chemistry Status: Acute Assessment and Plan: As above. (7) ESRD on hemodialysis: Code(s): N18.6 - End stage renal disease; Z99.2 - Dependence on renal dialysis Status: Chronic Assessment and Plan: Patient does home dialysis M-F. states HD has been going well at home. Nephrology following. Tolerated HD well. Appreciate Nephrology input. 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 Glucose in the 400 on admission. Glucose reviewed on 10/27/19 and elevated at times. Currently on Lantus 50 units subcu at night. NovoLog 11 units t.i.d. mealtime was started. Glucose was 62 this morning that required treatment.
--- NOTE | 2019-10-27 12:26 | PM.PNCARD ---
Progress Note: A&P Additional Plan 64-year-old lady with: End-stage renal disease on hemodialysis. Longstanding hypertension Coronary artery disease with previous PCI Paroxysmal atrial fibrillation. Significant Arcadio arrhythmias and pauses in the setting of hyperkalemia which is now been corrected. Long discussion with the patient and her about her paroxysmal atrial fibrillation. They seem to understand it well. The only significant decision to be made here that I can see is whether or not she should be systemically anticoagulated. 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 My personal opinion would be to avoid systemic anticoagulation in this lady who has to have dialysis fistula access several times per week. I did tell her and her that her other physicians might feel differently about this and recommend systemic anticoagulation. As indicated in our previous note from 10/25/2019 she should be contacting her physician for follow-up at short interval following discharge. At this point I do not think there is a cardiac reason that she needs to remain in the hospital. Please call me if you have any additional questions Rohit Montgomery MD [facility] Subjective Date/time seen: Date of service: 10/27/19 12:26 Interval history: Follow-up visit in this 64-year-old lady with history of coronary artery disease and now recognized to have paroxysmal atrial fibrillation. Principal comorbidity is end-stage renal disease and need for hemodialysis. Consultation was requested earlier this past week because of bradyarrhythmia his which occurred in the setting of significant hyperkalemia. This has been corrected. We had signed off of this patient's case on 10/25/2019 as she was stable no longer having Arcadio arrhythmias and has a bus company manager in another practice in [place] for follow-up. Asked to see the patient again today to assess her stability for discharge because she continues to have self-limited episodes of atrial fibrillation noted on telemetry. When she did have atrial fibrillation last evening apparently she had some chest discomfort as well after the nurse awakened her from sleep in asked her about it. She states her chest feels a little sore this morning otherwise she is doing well she has cleaned up and taking a bath and is hopeful to be discharged. Exam Const: General: comfortable and no acute distress HENMT: Mouth: Yes moist mucous membranes Eyes: Sclera: sclerae normal Pupils: Equal, round and reactive pupils present Neck: Neck: no JVD Thyroid: thyroid normal Resp: Effort & Inspection: normal respiratory effort Cardio: Rate: regular rate Rhythm: regular rhythm GI: Auscultation: normal bowel sounds Skin: General skin exam: normal color Neuro: Cognition (Neuro): normal cognition Objective Data Vital Signs Vital Signs: Vital Signs - 24 hr 10/26/19 12:27 10/26/19 12:35 10/26/19 14:00 Temperature 36.5 C Pulse Rate 66 70 76 Respiratory Rate 18 Blood Pressure 173/81 H 180/82 H Pulse Oximetry 10/26/19 16:00 10/26/19 20:00 10/26/19 21:48 Temperature 36.1 C L 36.4 C L Pulse Rate 87 77 66 Respiratory Rate 20 18 18 Blood Pressure 168/54 H 155/52 H Pulse Oximetry 100 95 98 10/26/19 22:00 10/26/19 22:26 10/26/19 23:41 Temperature 36.8 C Pulse Rate 75 66 71 Respiratory Rate 18 20 Blood Pressure 146/54 H Pulse Oximetry 98 99 10/27/19 00:00 10/27/19 02:00 10/27/19 02:46 Temperature Pulse Rate 71 76 70 Respiratory Rate 17 Blood Pressure Pulse Oximetry 99 10/27/19 03:48 10/27/19 04:00 10/27/19 06:00 Temperature 36.3 C L Pulse Rate 115 H 120 H 72 Respiratory Rate 20 Blood Pressure 152/87 H Pulse Oximetry 100 10/27/19 08:00 10/27/19 12:00 Temperature 36.2 C L 36.8 C Pulse Rate 75 78 Respiratory Rate 20 20 Blood Pressure 1
[2019-10-27] MEDS: INSULIN ASPART (*BKC) 100 UNITS/ML 8 UNITS SUB-Q ×2 (13:49→18:02)
--- NOTE | 2019-10-27 16:07 | PC.NURSE ---
Patient had c/o of some burning pain in her lower medial chest/epigastric area at 1540 Patient was in sinus rhythm with a pulse of 89 with no PVC's. Scooted patient up in bed and sat her up instead of laying down and it alleviated her pain, administered PRN Tylenol as well. Will call physician to determine whether or not some PRN antacids are necessary.
[2019-10-27] MEDS: CALCIUM CARBONATE (TUMS) 500 MG (200 MG ELEMENTAL) PO (16:42)
[2019-10-27 17:52] LABS: Glucose Point of Care 318 (65-105)
[2019-10-27] MEDS: INSULIN ASPART (*BKC) 100 UNITS/ML SUB-Q (18:01)
[2019-10-27] MEDS: APIXABAN 5 MG TABLET PO (20:19)
[2019-10-27] MEDS: INSULIN GLARGINE (*BKC) 100 UNITS/ML 50 UNITS SUB-Q (20:20)
[2019-10-27 20:36] LABS: Glucose Point of Care 202 (65-105)
[2019-10-28] VITALS (22 sets, daily range): BP systolic 129–151; BP diastolic 50–82; PULSE 64–142; RESP 18–23; TEMP 36.1–37.8; O2SAT 92–100
[2019-10-28 04:54] LABS: Hematocrit 29.5 % (37.0-47.0); Hemoglobin 9.2 g/dL (12.0-15.0); Mean Corpuscular HGB Conc 31.2 g/dl (32-36); Mean Corpuscular Hemoglobin 29.9 pg (26-34); Mean Corpuscular Volume 95.8 fl (80-100); Mean Platelet Volume 11.2 fl (7.4-10.4); Platelet Count Result 172 k/mm3 (150-375); Red Blood Count 3.08 M/mm3 (4.2-5.4); Red Cell Distribution Width 13.8 % (11.5-14.5); White Blood Count 7.7 K/mm3 (4.5-10.0)
[2019-10-28 05:08] LABS: Albumin Level 3.4 g/dL (3.5-5.1); Blood Urea Nitrogen 31 mg/dL (7-17); Calcium 8.8 mg/dL (8.4-10.2); Carbon Dioxide 31 mmol/L (22-30); Chloride 94 mmol/L (98-107); Estimated CRCL calculation 15 ml/min; Estimated Glomerular Filt Rate 10; Glucose 66 mg/dL (65-105); Magnesium 1.8 mg/dL (1.6-2.3); Phosphorus 2.9 mg/dL (2.5-4.5); Potassium 3.9 mmol/L (3.4-5.0); Sodium 132 mmol/L (137-145)
[2019-10-28] MEDS: SEVELAMER CARBONATE 800 MG TABLET PO ×3 (07:42→18:00)
[2019-10-28] MEDS: amLODIPine BESYLATE 5 MG TABLET PO (07:43)
[2019-10-28] MEDS: APIXABAN 5 MG TABLET PO ×2 (07:44→20:18)
[2019-10-28] MEDS: calcitrioL 0.25 MCG CAPSULE PO (07:45)
[2019-10-28] MEDS: ATORVASTATIN 40 MG TABLET PO (07:45)
[2019-10-28] MEDS: ASPIRIN 81 MG ENTERIC TABLET PO (07:45)
[2019-10-28] MEDS: CHOLECALCIFEROL 1,000 UNIT TABLET 4000 UNITS PO (07:46)
[2019-10-28] MEDS: GABAPENTIN 400 MG CAPSULE PO ×3 (07:47→16:26)
[2019-10-28] MEDS: ESCITALOPRAM OXALATE 10 MG TABLET PO (07:47)
[2019-10-28] MEDS: FUROSEMIDE 80 MG TABLET PO (07:47)
[2019-10-28] MEDS: FENOFIBRATE,MICRONIZED 48 MG TABLET PO (07:47)
[2019-10-28] MEDS: PANTOPRAZOLE 40 MG TABLET PO ×2 (07:48→20:18)
[2019-10-28] MEDS: VITAMIN B CMPLX/VIT C/FOLIC AC 1 CAPSULE 1 CAP PO (07:49)
[2019-10-28] MEDS: ACETAMINOPHEN 325 MG TABLET 650 MG PO (07:49)
[2019-10-28 08:10] LABS: Glucose Point of Care 71 (65-105)
--- NOTE | 2019-10-28 09:34 | WPDGIPROGNO ---
Progress Note: A&P Additional Plan GI follow-up. Patient continues to deny abdominal pain. Tolerating diet. Physical exam reveals her to be alert. Afebrile. She is anicteric. Lungs are clear. Heart without murmur. Abdomen is obese soft nontender with no organomegaly evident at this time. Labs reveal hemoglobin 9.2, hematocrit 29.5 stable. BUN 31, creatinine 4.6. AST 222, ALT 633. These are decreasing. Impression 1. Resolved abdominal pain. Uncertain etiology. She appeared to have mesenteric inflammation on CT scan. But this is resolved with conservative management. 2. Elevated LFTs. Most consistent with shock liver . Expect that these will continue to resolve. Suggest follow-up LFTs after discharge to a [facility] ensure complete resolution. 3. End-stage renal disease on dialysis. Azotemia likely contributed to her initial nausea. This is now resolved. 4. Paroxysmal atrial fibrillation. Currently monitored by cardiology service. Subjective Date/time seen: 10/28/19 09:34 Objective Data Vital Signs Vital Signs: Vital Signs - 24 hr 10/27/19 10:00 10/27/19 12:00 10/27/19 14:00 Temperature 98.2 F Pulse Rate 78 74 90 Respiratory Rate 20 Blood Pressure 174/56 H Pulse Oximetry 98 10/27/19 16:00 10/27/19 18:00 10/27/19 20:00 Temperature 98.9 F 99.1 F Pulse Rate 86 77 83 Respiratory Rate 24 H 20 Blood Pressure 169/65 H 150/62 H Pulse Oximetry 100 98 10/27/19 21:20 10/27/19 22:00 10/28/19 00:00 Temperature 100.0 F H Pulse Rate 85 79 77 Respiratory Rate 20 20 Blood Pressure 151/58 H Pulse Oximetry 99 92 10/28/19 02:00 10/28/19 02:15 10/28/19 04:00 Temperature 98.3 F Pulse Rate 84 81 77 Respiratory Rate 23 H 20 Blood Pressure 149/50 H Pulse Oximetry 97 97 10/28/19 05:38 10/28/19 07:49 10/28/19 08:00 Temperature 98.3 F 97.9 F Pulse Rate 78 87 Respiratory Rate 18 Blood Pressure 129/82 Pulse Oximetry 100 Intake/Output Intake/Output: Intake & Output 10/25/19 10/26/19 10/27/1920 23:59 23:59 23:59 23:59 Intake Total 2360 1200 2340 200 Output Total 950 3300 Balance 1410 -2100 2340 200 Meds/Results Medications: Active Medications Generic Name Dose Route Start Last Admin Trade Name Freq PRN Reason Stop Dose Admin Acetaminophen 650 mg 10/22/19 00:31 10/28/19 07:49 Tylenol Tablet PO 650 mg Q4H PRN Administration Mild Pain (1-3) or Fever Hydrocodone Bitart/Acetaminophen 1 tab 10/22/19 00:31 10/27/19 13:50 [place] 5-325 Mg PO 1 tab Q4H PRN Administration Moderate Pain (4-6) Amlodipine Besylate 5 mg 10/26/19 10:25 10/28/19 07:43 Norvasc PO 5 mg QAM KASSIDY Administration Apixaban 5 mg 10/27/19 21:00 10/28/19 07:44 Eliquis PO 5 mg Q12HR KASSIDY Administration Aspirin 81 mg 10/28/19 09:00 10/28/19 07:45 Aspirin Ec PO 81 mg DAILY KASSIDY Administration Atorvastatin Calcium 40 mg 10/22/19 09:00 10/28/19 07:45 Lipitor PO 40 mg DAILY KASSIDY Administration Calcitriol 0.25 mcg 10/22/19 09:00 10/28/19 07:45 Rocaltrol PO 0.25 mcg DAILY KASSIDY Administration Calcium Carbonate 200 mg 10/27/19 16:18 10/27/19 16:42 Tums PO 200 mg Q6H PRN Administration Indigestion Dextrose 12.5 gm 10/22/19 00:29 Dextrose 50% Syringe IV PUSH PRN PRN Hypoglycemia Protocol Escitalopram Oxalate 10 mg 10/22/19 09:00 10/28/19 07:47 Lexapro PO 10 mg DAILY KASSIDY Administration Fenofibrate 48 mg 10/25/19 09:00 10/28/19 07:47 Tricor PO 48 mg QAM KASSIDY Administration Furosemide 80 mg 10/22/19 09:00 10/28/19 07:47 Lasix Tablet PO 80 mg DAILY KASSIDY Administration Gabapentin 400 mg 10/22/19 09:00 10/28/19 07:47 Neurontin PO 400 mg TID KASSIDY Administration Glucagon 1 mg 10/22/19 00:29 Glucagon For Inj IM PRN PRN Hypoglycemia Protocol Glucose 15 gm 10/22/19 00:29 10/27/19 08:04 Glu
[2019-10-28 12:07] LABS: Glucose Point of Care 221 (65-105)
[2019-10-28 12:15] LABS: Mitochondrial (M2) Ab (IgG) <=20.0 U (<=20.0)
[2019-10-28] MEDS: INSULIN ASPART (*BKC) 100 UNITS/ML SUB-Q ×2 (12:44→16:26)
[2019-10-28] MEDS: INSULIN ASPART (*BKC) 100 UNITS/ML 8 UNITS SUB-Q ×2 (12:44→16:27)
--- NOTE | 2019-10-28 13:09 | PM.PNCARD ---
Progress Note: A&P Additional Plan 64-year-old lady with symptomatic paroxysmal atrial fibrillation with underlying coronary artery disease. I am going to have to resume some beta-julissa treatment tried a suppressed the recurrences of atrial fibrillation. On admission she was taking metoprolol at 200 mg daily. I will resume 50 mg daily as of now and observe her rhythm for at least another 24 hours in the hospital. 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 She was taken off of all rate controlling medications because of pauses and Arcadio arrhythmias. She now is having more frequent episodes of atrial fibrillation which are symptomatic with chest pain. Currently in sinus rhythm feeling well. Systemic anticoagulation started yesterday by the hospitalist in the form of apixaban. Exam Const: General: comfortable and no acute distress Other: Overweight lady pleasant cooperative and comfortable HENMT: Mouth: Yes moist mucous membranes Eyes: Sclera: sclerae normal Pupils: Equal, round and reactive pupils present Neck: Neck: supple Resp: Effort & Inspection: normal respiratory effort Auscultation: clear to auscultation bilaterally Cardio: Rate: regular rate Rhythm: regular rhythm GI: Auscultation: normal bowel sounds Skin: General skin exam: normal color Neuro: Cognition (Neuro): normal cognition Objective Data Vital Signs Vital Signs: Vital Signs - 24 hr 10/27/19 14:00 10/27/19 16:00 10/27/19 18:00 Temperature 37.2 C Pulse Rate 90 86 77 Respiratory Rate 24 H Blood Pressure 169/65 H Pulse Oximetry 100 10/27/19 20:00 10/27/19 21:20 10/27/19 22:00 Temperature 37.3 C Pulse Rate 83 85 79 Respiratory Rate 20 20 Blood Pressure 150/62 H Pulse Oximetry 98 99 10/28/19 00:00 10/28/19 02:00 10/28/19 02:15 Temperature 37.8 C H Pulse Rate 77 84 81 Respiratory Rate 20 23 H Blood Pressure 151/58 H Pulse Oximetry 92 97 10/28/19 04:00 10/28/19 05:38 10/28/19 07:49 Temperature 36.8 C 36.8 C Pulse Rate 77 78 Respiratory Rate 20 Blood Pressure 149/50 H Pulse Oximetry 97 10/28/19 08:00 10/28/19 10:00 10/28/19 11:59 Temperature 36.6 C Pulse Rate 142 H 82 80 Respiratory Rate 18 18 Blood Pressure 129/82 Pulse Oximetry 100 100 10/28/19 12:00 Temperature 36.4 C L Pulse Rate 79 Respiratory Rate 18 Blood Pressure 150/58 H Pulse Oximetry 97 Intake/Output Intake/Output: Intake & Output 10/25/19 10/26/19 10/27/19 10/28/19 23:59 23:59 23:59 23:59 Intake Total 2360 1200 2340 1180 Output Total 950 3300 Balance 1410 -2100 2340 1180 Meds/Results Medications: Active Medications Generic Name Dose Route Start Last Admin Trade Name Freq PRN Reason Stop Dose Admin Acetaminophen 650 mg 10/22/19 00:31 10/28/19 07:49 Tylenol Tablet PO 650 mg Q4H PRN Administration Mild Pain (1-3) or Fever Hydrocodone Bitart/Acetaminophen 1 tab 10/22/19 00:31 10/27/19 13:50 [place] 5-325 Mg PO 1 tab Q4H PRN Administration Moderate Pain (4-6) Amlodipine Besylate 5 mg 10/26/19 10:25 10/28/19 07:43 Norvasc PO 5 mg QAM KASSIDY Administration Apixaban 5 mg 10/27/19 21:00 10/28/19 07:44 Eliquis PO 5 mg Q12HR KASSIDY Administration Aspirin 81 mg 10/28/19 09:00 10/28/19 07:45 Aspirin Ec PO 81 mg DAILY KASSIDY Administration Atorvastatin Calcium 40 mg 10/22/19 09:00 10/28/19 07:45 Lipitor PO 40 mg DAILY KASSIDY Administration Calcitriol 0.25 mcg 10/22/19 09:00 10/28/19 07:45 Rocaltrol PO 0.25 mcg DAILY KASSIDY Administration Calcium Carbonate
--- NOTE | 2019-10-28 13:23 | PM.IMPN ---
Progress Note: A&P Assessment and Plan (1) Atrial fibrillation with rapid ventricular response: Code(s): I48.91 - Unspecified atrial fibrillation Status: Acute Assessment and Plan: Patient had a transient episode of atrial fibrillation on 10/23/19. Patient had a recurrent episode of tachycardia and CP on 10/24 with telemetry showing AFib/RVR with rate into the 120's. EKG showing AFib/RVR with worsening ST depression in the anterior lateral leads. CP was 01/24. BP 173/93. NTG x 1 given and CP resolved. No rate limiting medication due to recent cardiac pause. Patient converted back to NSR. Patient continues to have paroxysmal AFib. ENP2PP2-Wqtl score = 7. She was given one dose of Lovenox 10/24. Repeat EKG 10/[address]-T wave changes but less severe. Eliquis started 10/27/19. Plavix topped and ASA decreased to 81mg. Discussed with cardiology and plan is to add back Metoprolol today. Consider underlying ischemia given the noted EKG changes although some seem to be chronic. Discussed with cardiology. Could be rate related ischemia with the EKG changes and CP. Plan to start metoprolol and monitor closely on telemetry. (2) Bradycardia: Code(s): R00.1 - Bradycardia, unspecified Status: Acute Assessment and Plan: HR dropped into the 40's with cardiac pause of 4.2sec on 10/22/19. Most likely related to her Toprol, clonidine and undiagnosed sleep apnea. Metoprolol and clonidine have been stopped. Sleep apnea being treated. TSH normal. HR stable on telemetry. Metoprolol to be resumed so monitor closely for recurrence. (3) Hyperkalemia: Code(s): E87.5 - Hyperkalemia Status: Acute Assessment and Plan: Etiology unclear on why her potassium was so high. She has been tolerating her HD at home. Potassium remaining normal now. Continue hemodialysis to control potassium. (4) Apnea: Code(s): R06.81 - Apnea, not elsewhere classified Status: Acute Assessment and Plan: Patient has undiagnosed sleep apnea. ABG showing pH 7.30, pCO2 49.7 and pO2 110 on 2L. Apnea link with AHI 41 and RI 43. Patient required 2L O2 overnight during the test because she dropped her O2 to 54%. She is tolerating the auto-BiPAP. Respiratory therapy has been contacted and we are arranging for a self titrating CPAP with 2L O2 bleed in at home. She will need a formal sleep study once COVID precautions have been lifted. (5) Abdominal pain: Qualifiers: Abdominal location: unspecified location Qualified Code(s): R10.9 - Unspecified abdominal pain Code(s): R10.9 - Unspecified abdominal pain Status: Acute Assessment and Plan: Patient with diffuse abdominal pain on admission which is better. CT scan showing stranding of the upper abdominal peritoneum and mesentery adjacent to the stomach and duodenum. Lipase is normal. LFTs elevated with AST 1843 and ALT to 1408 with levels trending down since. Hepatitis panel negative. Etiology unclear but felt related to localized peritonitis - PUD? Hepatitis?. Continue Protonix for now. Appreciate GI input. (6) Elevated LFTs: Code(s): R79.89 - Other specified abnormal findings of blood chemistry Status: Acute Assessment and Plan: As above. (7) ESRD on hemodialysis: Code(s): N18.6 - End stage renal disease; Z99.2 - Dependence on renal dialysis Status: Chronic Assessment and Plan: Patient does home dialysis M-F. states HD has been going well at home. Nephrology following. Tolerated HD well. Appreciate Nephrology input. (8) Diabetes: Qualifiers: Diabetes mellitus complication status: without complication Diabetes mellitus terminal supervisor insulin use: with terminal supervisor use Diabetes mellitus type: type 2 Qualified Code(s): E11.9 - Type 2 diabetes mellitus without complications; Z79.4 - FPC (current) use of insulin Code(s):
--- NOTE | 2019-10-28 13:49 | PCRCNOTE ---
UPDATE ON HOME CPAP UNIT. ALL PAPERWORK HAS BEEN SENT FOR APPROVAL. KERRI AT [facility] SAID THAT THEY WILL BE ABLE TO PROVIDE HOME O2 TO THE PT IF DISCHARGED TODAY, BUT THE HOME CPAP UNIT CANT BE SET UP HERE OR AT HOME UNTIL TOMMORROW, 10/28. NICK ALLEN IS AWARE.
[2019-10-28] MEDS: METOPROLOL SUCCINATE EXT REL 50 MG TABCR PO (14:30)
[2019-10-28] MEDS: MAGNESIUM SULF 1 GM/D5W 100 ML 1 GM/100 ML BAG IVPB (14:31)
--- NOTE | 2019-10-28 15:43 | PM.PNNEP ---
Progress Note: A&P Assessment and Plan (1) ESRD on hemodialysis: Code(s): N18.6 - End stage renal disease; Z99.2 - Dependence on renal dialysis Status: Chronic Assessment and Plan: HD tomorrow and continue T/T/S schedule while hospitalized resume daily HD once back home (2) Abdominal pain: Qualifiers: Abdominal location: unspecified location Qualified Code(s): R10.9 - Unspecified abdominal pain Code(s): R10.9 - Unspecified abdominal pain Status: Acute Assessment and Plan: resolving due to UTI +/- shock liver continue supportive care (3) Hyperkalemia: Code(s): E87.5 - Hyperkalemia Status: Acute Assessment and Plan: resolved follow repeat levels (4) Bradycardia: Code(s): R00.1 - Bradycardia, unspecified Status: Acute Assessment and Plan: resolved due to a combination of things including clonidine, metoprolol, potassium and KAREN follow trend + telemetry (5) Paroxysmal A-fib: Code(s): I48.0 - Paroxysmal atrial fibrillation Status: Acute Assessment and Plan: to restart metoprolol in an effort to maintain rate control Cardiology following Will continue to follow. Subjective Date/time seen: 10/28/19 15:43 Appears to be doing reasonably well at this time; still with episodes of afib associated with chest pain (which she has when she goes into afib); no apparent distress at this time; discussed situation with her at bedside. Exam Narrative: Exam Narrative: General: WD/WN female in NAD Heart: normal S1 and S2; no rub Lungs: clear to auscultation Abdomen: soft, nontender, nondistended, positive bowel sounds Extremities: no cyanosis or clubbing; no edema Skin: warm and dry Objective Data Vital Signs Vital Signs: Vital Signs Temp Pulse Resp BP Pulse Ox 10/28/19 18:00 71 10/28/19 16:00 36.1 C L 74 18 145/55 H 100 10/28/19 15:59 74 18 97 10/28/19 14:30 79 10/28/19 14:00 79 10/28/19 12:00 36.4 C L 80 18 150/58 H 97 10/28/19 11:59 80 18 100 10/28/19 10:00 82 07/13/20 08:00 36.6 C 142 H 18 129/82 100 10/28/19 07:49 36.8 C 10/28/19 05:38 78 10/28/19 04:00 36.8 C 77 20 149/50 H 97 10/28/19 02:15 81 23 H 97 10/28/19 02:00 84 10/28/19 00:00 37.8 C H 77 20 151/58 H 92 10/27/19 22:00 79 10/27/19 21:20 85 20 99 10/27/19 20:00 37.3 C 83 20 150/62 H 98 Intake/Output Intake/Output: Intake & Output 10/25/19 10/26/19 10/27/19 10/28/19 23:59 23:59 23:59 23:59 Intake Total 2360 1200 2340 1180 Output Total 950 3300 Balance 1410 -2100 2340 1180 Meds/Results Medications: Active Medications Generic Name Dose Route Start Last Admin Trade Name Freq PRN Reason Stop Dose Admin Acetaminophen 650 mg 10/22/19 00:31 10/28/19 07:49 Tylenol Tablet PO 650 mg Q4H PRN Administration Mild Pain (1-3) or Fever Hydrocodone Bitart/Acetaminophen 1 tab 10/22/19 00:31 10/27/19 13:50 [place] 5-325 Mg PO 1 tab Q4H PRN Administration Moderate Pain (4-6) Amlodipine Besylate 5 mg 10/26/19 10:25 10/28/19 07:43 Norvasc PO 5 mg QAM KASSIDY Administration Apixaban 5 mg 10/27/19 21:00 10/28/19 07:44 Eliquis PO 5 mg Q12HR KASSIDY Administration Aspirin 81 mg 10/28/19 09:00 10/28/19 07:45 Aspirin Ec PO 81 mg DAILY KASSIDY Administration Atorvastatin Calcium 40 mg 10/22/19 09:00 10/28/19 07:45 Lipitor PO 40 mg DAILY KASSIDY Administration Calcitriol 0.25 mcg 10/22/19 09:00 10/28/19 07:45 Rocaltrol PO 0.25 mcg DAILY KASSIDY Administration Calcium Carbonate 200 mg 10/27/19 16:18 10/27/19 16:42 Tums PO 200 mg Q6H PRN Administration Indigestion Dextrose 12.5 gm 10/22/19 00:29 Dextrose 50% Syringe IV PUSH PRN PRN Hypoglycemia Protocol Escitalopram Oxalate 10 mg 10/22/19 09:00 10/28/19 0
[2019-10-28 16:18] LABS: Glucose Point of Care 260 (65-105)
[2019-10-28] MEDS: MAGNESIUM OXIDE 400 MG TABLET PO (16:30)
[2019-10-28] MEDS: METOPROLOL TARTRATE 25 MG TABLET PO (20:19)
[2019-10-28] MEDS: INSULIN GLARGINE (*BKC) 100 UNITS/ML 50 UNITS SUB-Q (20:19)
[2019-10-28 20:34] LABS: Glucose Point of Care 231 (65-105)
[2019-10-29] VITALS (27 sets, daily range): BP systolic 102–144; BP diastolic 46–71; PULSE 51–82; RESP 16–30; TEMP 36–37; O2SAT 96–100
[2019-10-29] MEDS: SEVELAMER CARBONATE 800 MG TABLET PO ×2 (08:27→14:01)
[2019-10-29] MEDS: amLODIPine BESYLATE 5 MG TABLET PO (08:28)
[2019-10-29] MEDS: ASPIRIN 81 MG ENTERIC TABLET PO (08:28)
[2019-10-29] MEDS: APIXABAN 5 MG TABLET PO (08:28)
[2019-10-29] MEDS: CHOLECALCIFEROL 1,000 UNIT TABLET 4000 UNITS PO (08:29)
[2019-10-29] MEDS: ATORVASTATIN 40 MG TABLET PO (08:29)
[2019-10-29] MEDS: calcitrioL 0.25 MCG CAPSULE PO (08:29)
[2019-10-29] MEDS: ESCITALOPRAM OXALATE 10 MG TABLET PO (08:30)
[2019-10-29] MEDS: FENOFIBRATE,MICRONIZED 48 MG TABLET PO (08:30)
[2019-10-29] MEDS: GABAPENTIN 400 MG CAPSULE PO ×2 (08:30→14:00)
[2019-10-29] MEDS: FUROSEMIDE 80 MG TABLET PO (08:30)
[2019-10-29] MEDS: METOPROLOL SUCCINATE EXT REL 50 MG TABCR PO (08:31)
[2019-10-29] MEDS: VITAMIN B CMPLX/VIT C/FOLIC AC 1 CAPSULE 1 CAP PO (08:32)
[2019-10-29] MEDS: PANTOPRAZOLE 40 MG TABLET PO (08:32)
[2019-10-29] MEDS: INSULIN ASPART (*BKC) 100 UNITS/ML 8 UNITS SUB-Q ×2 (08:36→14:01)
[2019-10-29 08:47] LABS: Glucose Point of Care 114 (65-105)
--- NOTE | 2019-10-29 09:07 | PCDIET ---
Weekly nutritional screen. Patient is tolerating renal dialysis, diabetic diet with intake of 100% at most meals. No weight loss reported. BMI 34.0No nutritional needs at this time.
--- NOTE | 2019-10-29 11:21 | PM.PNNEP ---
Progress Note: A&P Assessment and Plan (1) ESRD on hemodialysis: Code(s): N18.6 - End stage renal disease; Z99.2 - Dependence on renal dialysis Status: Chronic Assessment and Plan: HD today and continue T/T/S schedule while hospitalized resume daily HD once back home (2) Abdominal pain: Qualifiers: Abdominal location: unspecified location Qualified Code(s): R10.9 - Unspecified abdominal pain Code(s): R10.9 - Unspecified abdominal pain Status: Acute Assessment and Plan: resolving due to UTI +/- shock liver continue supportive care (3) Hyperkalemia: Code(s): E87.5 - Hyperkalemia Status: Acute Assessment and Plan: resolved follow repeat levels (4) Bradycardia: Code(s): R00.1 - Bradycardia, unspecified Status: Acute Assessment and Plan: resolved due to a combination of things including clonidine, metoprolol, potassium and KAREN follow trend + telemetry (5) Paroxysmal A-fib: Code(s): I48.0 - Paroxysmal atrial fibrillation Status: Acute Assessment and Plan: back metoprolol in an effort to maintain rate control Cardiology following Will continue to follow. Subjective Date/time seen: 10/29/19 11:21 Tolerating dialysis treatment at the time of my visit (seen on HD at ~ 11:05AM); seems to be doing reasonably well; no events or problems overnight or earlier this AM; no apparent distress noted. Exam Narrative: Exam Narrative: General: WD/WN female in NAD Heart: normal S1 and S2; no rub Lungs: clear to auscultation Abdomen: soft, nontender, nondistended, positive bowel sounds Extremities: no cyanosis or clubbing; no edema Skin: warm and intact Objective Data Vital Signs Vital Signs: Vital Signs Temp Pulse Resp BP Pulse Ox 10/29/19 10:00 53 L 10/29/19 08:31 63 10/29/19 08:00 58 L 20 100 10/29/19 07:49 36.3 C L 56 L 20 115/51 L 100 10/29/19 05:51 68 10/29/19 05:03 66 30 H 97 10/29/19 04:00 36.6 C 64 18 114/52 L 97 10/29/19 02:00 64 10/29/19 00:00 36.5 C 67 20 127/51 L 100 10/28/19 23:52 64 22 H 97 10/28/19 22:21 97 10/28/19 22:19 84 22 H 98 10/28/19 22:00 66 10/28/19 20:19 84 10/28/19 20:00 72 18 99 10/28/19 19:51 36.7 C 72 18 141/51 H 99 10/28/19 18:00 71 10/28/19 16:00 36.1 C L 74 18 145/55 H 100 10/28/19 15:59 74 18 97 10/28/19 14:30 79 10/28/19 14:00 79 10/28/19 12:00 36.4 C L 80 18 150/58 H 97 10/28/19 11:59 80 18 100 Intake/Output Intake/Output: Intake & Output 10/26/19 10/27/19 10/28/19 10/29/19 23:59 23:59 23:59 23:59 Intake Total 1200 2340 1660 200 Output Total 3300 Balance -2100 2340 1660 200 Meds/Results Medications: Active Medications Generic Name Dose Route Start Last Admin Trade Name Freq PRN Reason Stop Dose Admin Acetaminophen 650 mg 10/22/19 00:31 10/28/19 07:49 Tylenol Tablet PO 650 mg Q4H PRN Administration Mild Pain (1-3) or Fever Hydrocodone Bitart/Acetaminophen 1 tab 10/22/19 00:31 10/27/19 13:50 [place] 5-325 Mg PO 1 tab Q4H PRN Administration Moderate Pain (4-6) Amlodipine Besylate 5 mg 10/26/19 10:25 10/29/19 08:28 Norvasc PO 5 mg QAM KASSIDY Administration Apixaban 5 mg 10/27/19 21:00 10/29/19 08:28 Eliquis PO 5 mg Q12HR KASSIDY Administration Aspirin 81 mg 10/28/19 09:00 10/29/19 08:28 Aspirin Ec PO 81 mg DAILY KASSIDY Administration Atorvastatin Calcium 40 mg 10/22/19 09:00 10/29/19 08:29 Lipitor PO 40 mg DAILY KASSIDY Administration Calcitriol 0.25 mcg 10/22/19 09:00 10/29/19 08:29 Rocaltrol PO 0.25 mcg DAILY KASSIDY Administration Calcium Carbonate 200 mg 10/27/19 16:18 10/27/19 16:42 Tums PO 200 mg Q6H PRN Administration Indigestion Dextrose 12.5 gm 10/22/19 00:29 Dextrose 50% Syringe IV PUS
[2019-10-29 12:36] LABS: GGT 53 U/L (3-65)
[2019-10-29 14:10] LABS: Glucose Point of Care 100 (65-105)
--- NOTE | 2019-11-02 18:06 | PM.DS ---
DS: Admitting Diagnosis Admitting Diagnosis Admitting Diagnosis: Abnormal findings on diagnostic imaging of other specified body structures DS: Discharge Diagnosis Discharge Diagnosis (1) Atrial fibrillation with rapid ventricular response: Code(s): I48.91 - Unspecified atrial fibrillation Status: Acute Assessment and Plan: Patient had a transient episode of atrial fibrillation on 10/23/19. Patient had a recurrent episode of tachycardia and CP on 10/24 with telemetry showing AFib/RVR with rate into the 120's. EKG showing AFib/RVR with worsening ST depression in the anterior lateral leads. CP was 01/24. BP 173/93. NTG x 1 given and CP resolved. No rate limiting medication due to recent cardiac pause. Patient converted back to NSR. Patient continues to have paroxysmal AFib. [id number] score = 7. She was given one dose of Lovenox 10/24. Repeat EKG 10/[address]-T wave changes but less severe. Eliquis started 10/27/19. Plavix topped and ASA decreased to 81mg. Discussed with cardiology and plan is to add back Metoprolol XL 50 daily. Consider underlying ischemia given the noted EKG changes . Anticoagulated with apixaban. (2) Bradycardia: Code(s): R00.1 - Bradycardia, unspecified Status: Acute Assessment and Plan: HR dropped into the 40's with cardiac pause of 4.2sec on 10/22/19. Most likely related to her Toprol, clonidine and undiagnosed sleep apnea. Metoprolol and clonidine have been stopped initially and metoprolol restarted before discharge. Sleep apnea being treated. TSH normal. HR stable on telemetry. (3) Hyperkalemia: Code(s): E87.5 - Hyperkalemia Status: Acute Assessment and Plan: Etiology unclear on why her potassium was so high. She has been tolerating her HD at home. Potassium remaining normal now. Continue hemodialysis to control potassium. (4) Apnea: Code(s): R06.81 - Apnea, not elsewhere classified Status: Acute Assessment and Plan: Patient has undiagnosed sleep apnea. ABG showing pH 7.30, pCO2 49.7 and pO2 110 on 2L. Apnea link with AHI 41 and RI 43. Patient required 2L O2 overnight during the test because she dropped her O2 to 54%. She is tolerating the auto-BiPAP. Respiratory therapy contacted and arranged for a self titrating CPAP with 2L O2 bleed in at home. She will need a formal sleep study once COVID precautions have been lifted. (5) Abdominal pain: Qualifiers: Abdominal location: unspecified location Qualified Code(s): R10.9 - Unspecified abdominal pain Code(s): R10.9 - Unspecified abdominal pain Status: Acute Assessment and Plan: Patient with diffuse abdominal pain on admission which is better. CT scan showing stranding of the upper abdominal peritoneum and mesentery adjacent to the stomach and duodenum. Lipase is normal. LFTs elevated with AST 1843 and ALT to 1408 with levels trending down to 222/633 respectively on the . Hepatitis panel negative. Etiology unclear but felt related to localized peritonitis - PUD? Hepatitis?. Continue Protonix for now. GI recommended serial testing as an outpatient Repeat CMP 11/04 (6) Elevated LFTs: Code(s): R79.89 - Other specified abnormal findings of blood chemistry Status: Acute Assessment and Plan: As above. Repeat CMP 11/04 (7) ESRD on hemodialysis: Code(s): N18.6 - End stage renal disease; Z99.2 - Dependence on renal dialysis Status: Chronic Assessment and Plan: Patient does home dialysis M-F. states HD has been going well at home. Nephrology following. Tolerated HD well. Appreciate Nephrology input. (8) Diabetes: Qualifiers: Diabetes mellitus complication status: without complication Diabetes mellitus group home insulin use: with group home use Diabetes mellitus type: type 2 Qualified Code(s): E11.9 - Type 2 diabetes mellitus without compli
== END 2019-10-29 15:15 | disposition home or self-care (01) | DRG 640 ==
LOC: ANHED 20:58 → ANHIMU 21:52
PROVIDERS: Emergency Medicine; Internal Medicine; Internal Medicine Gastroenterology; Internal Medicine Nephrology; Admitting Provider Family Medicine; Emergency Provider Emergency Medicine; PCP Internal Medicine; Visit Provider Internal Medicine
DX: E87.5 Hyperkalemia (principal); N18.6 End stage renal disease; K72.00 Acute and subacute hepatic failure without coma; J96.01 Acute respiratory failure with hypoxia; J96.02 Acute respiratory failure with hypercapnia; K65.9 Peritonitis, unspecified; I12.0 Hypertensive chronic kidney disease with stage 5 chronic kidney disease or end stage renal disease; N39.0 Urinary tract infection, site not specified; F50.00 Anorexia nervosa, unspecified; E11.22 Type 2 diabetes mellitus with diabetic chronic kidney disease; R10.9 Unspecified abdominal pain; R11.2 Nausea with vomiting, unspecified; E11.42 Type 2 diabetes mellitus with diabetic polyneuropathy; D63.1 Anemia in chronic kidney disease; K21.9 Gastro-esophageal reflux disease without esophagitis; N32.89 Other specified disorders of bladder; F41.9 Anxiety disorder, unspecified; F32.9 Major depressive disorder, single episode, unspecified; R93.89 Abnormal findings on diagnostic imaging of other specified body structures; R00.1 Bradycardia, unspecified; T44.7X5A Adverse effect of beta-adrenoreceptor antagonists, initial encounter; T46.5X5A Adverse effect of other antihypertensive drugs, initial encounter; I48.91 Unspecified atrial fibrillation; N25.0 Renal osteodystrophy; I25.10 Atherosclerotic heart disease of native coronary artery without angina pectoris; G47.33 Obstructive sleep apnea (adult) (pediatric); E11.65 Type 2 diabetes mellitus with hyperglycemia; E66.01 Morbid (severe) obesity due to excess calories; Z68.34 Body mass index [BMI] 34.0-34.9, adult; Z99.2 Dependence on renal dialysis; I25.2 Old myocardial infarction; Z86.73 Personal history of transient ischemic attack (TIA), and cerebral infarction without residual deficits; Z95.5 Presence of coronary angioplasty implant and graft; Z90.49 Acquired absence of other specified parts of digestive tract; Z79.82 Long term (current) use of aspirin; Z79.4 Long term (current) use of insulin
CPT/HCPCS: 36415; 36600; 74176; 76705; 80048; 80053; 80069; 80074; 80076; 81001; 82104; 82140; 82390; 82550; 82728; 82805; 82977; 83036; 83520; 83540; 83550; 83690; 83735; 84100; 84443; 85025; 85027; 85055; 86038; 87040; 87086; 87088; 93005; 93306; 94002; 94003; 94660; 96372; 96374; 96375; 96376; 99285; A9270; C9113; G0257; G0378; J0461; J0500; J0610; J0696; J1644; J1650; J1815; J2405; J3475; J7030; Q5106

== ENCOUNTER → 2020-04-27 15:33 | Outpatient (CLI) | payer MEDICARE, SELFPAY ==
--- NOTE | ~2020-04-27 | CT_ITS ---
EXAMINATION: CT lumbar spine wo con DATE: 04/27/2020 15:53 INDICATION: Low back pain. TECHNIQUE: Computed tomography (CT) of the lumbar spine was performed without intravenous contrast. A utomated exposure control and iterative reconstruction technique were employed. The dose-length produ ct was 973.06 mGy-cm. COMPARISON: None FINDINGS: There is 11 degrees levoscoliosis of lumbar spine. There is mild chronic anterior wedging o f L1 vertebral body. There is severely decreased disc height at L3-L4 on the right. The following dis c levels are specifically discussed: L1-L2: The disc does not extend beyond the endplate margin. There is mild bilateral facet joint osteo arthritis. There is no neural foraminal stenosis. There is no central canal stenosis. L2-L3: The disc is bulging. There is mild right and moderate left facet joint osteoarthritis. There i s mild bilateral neural foraminal stenosis. There is mild central canal stenosis. L3-L4: The disc is bulging. There is mild bilateral facet joint osteoarthritis. There is mild bilater al neural foraminal stenosis. There is mild central canal stenosis. L4-L5: The disc is bulging. There is mild bilateral facet joint osteoarthritis. There is mild bilater al neural foraminal stenosis. There is mild central canal stenosis. L5-S1: The disc is bulging. There is moderate right and mild left facet joint osteoarthritis. There i s mild right neural foraminal stenosis. There is mild central canal stenosis. IMPRESSION: 1. Severe spondylosis at L3-L4 and mild spondylosis at other levels. 2. Lumbar levoscoliosis. Reviewed, dictated and finalized at location A. [facility]TENA[facility]CE
== END ==
PROVIDERS: PCP Internal Medicine; Visit Provider Nurse Practitioner Adult Health
DX: M47.26 Other spondylosis with radiculopathy, lumbar region (principal)
CPT/HCPCS: 72131

== ENCOUNTER → 2020-08-14 13:50 | Outpatient (CLI) | payer MEDICARE, SELFPAY ==
--- NOTE | ~2020-08-14 | CT_ITS ---
EXAMINATION: CT cervical spine wo con EXAM DATE: 08/14/2020 14:23 INDICATION: Cervical radiculopathy. History of C6 surgery. TECHNIQUE: Spiral CT of the cervical spine was performed without contrast. Axial images were reviewe d. Coronal and sagittal reformatted images cervical spine were also reviewed. The dose-length produc t (DLP) for this examination was 333.35 mGy-cm. The exposure was tailored according to patient size (auto mA exposure control), and iterative reconstruction (ASIR) was used as additional dose reduction technique. Correlation is made to cervical MRI examination 08/13/2018. FINDINGS: There is fusion of the C5 and 6 vertebral bodies. There is 2 mm anterolisthesis C3 on C4. There is moderate to severe disc disease at C4-5, moderate at C6-7. Mild reversal of normal cervical lordosis which could be degenerative. The odontoid process is intact. The lateral masses of C1 line up with C2. Prevertebral soft tissue and pre-dens space are within normal limits. Pacemaker/AICD tiffany ce. Level by level evaluation: C2-C3: Disc does not extend beyond the endplate margin. Uncovertebral joint arthropathy: None. Facet joint arthropathy: Moderate. Neural foraminal stenosis: No stenosis. Central canal stenosis: No stenosis. C3-C4: There is a mild diffuse disc bulge. Uncovertebral joint arthropathy: Mild bilateral. Facet joint arthropathy: Severe left, mild to moderate right. Neural foraminal stenosis: Moderate right, no left. Central canal stenosis: No stenosis. C4-C5: There is posterior disc osteophyte complex. Uncovertebral joint arthropathy: Severe left, moderate right. Facet joint arthropathy: Moderate left, mild to moderate right. Neural foraminal stenosis: Severe left, mild to moderate right. Central canal stenosis: Mild. C5-C6: This level is fused. Uncovertebral joint arthropathy: Fused. Facet joint arthropathy: Fused. Neural foraminal stenosis: Mild right. Central canal stenosis: No stenosis. C6-C7: There is a mild diffuse disc bulge. Uncovertebral joint arthropathy: Mild to moderate bilateral. Facet joint arthropathy: Mild bilateral. Neural foraminal stenosis: No stenosis. Central canal stenosis: No stenosis. C7-T1: Disc does not extend beyond the endplate margin. Uncovertebral joint arthropathy: None. Facet joint arthropathy: Moderate left, mild to moderate right. Neural foraminal stenosis: No stenosis. Central canal stenosis: No stenosis. IMPRESSION: 1. C3-4 moderate to severe disc disease, severe left neural foraminal stenosis. 2. Less spondylosis other levels. Reviewed, dictated and finalized at location A. IMPRESSION: 1. C3-4 moderate to severe disc disease, severe left neural foraminal stenosis . 2. Less spondylosis other levels.
== END ==
PROVIDERS: PCP Internal Medicine; Visit Provider Nurse Practitioner Adult Health
DX: M54.12 Radiculopathy, cervical region (principal); M50.31 Other cervical disc degeneration, high cervical region
CPT/HCPCS: 72125

== ENCOUNTER 2021-07-14 07:46 | Outpatient (RCR) | payer MEDICARE, SELFPAY ==
[2021-05-25 14:37] VITALS: BMI 29.2
--- NOTE | 2021-06-17 13:40 | PCWOUND ---
WOCN NOTE Patient Lencho Guerrero would benefit from a reverse post op shoe from [facility]. To start process for patient, Janet aaron needs a signed prescription that says Patient to be fitted for Heelwedge Healing Shoe Dx: ulcer to right plantar heel. Also they need the patient's demographic sheet to call patient and set up appointment. Please fax the prescription and demo sheet to Janet at [phone]. Thank you
--- NOTE | 2021-08-10 13:36 | PCWOUND ---
WOCN NOTE Patient called and cancelled appointment for Monday08-11-21. she is admitted in the hospital in [facility]. she will call when she is discharged if another appointment is needed.
== END 2021-08-23 23:59 | disposition home or self-care (01) ==
LOC: ANHWOC 07:46
PROVIDERS: PCP Internal Medicine; Visit Provider Internal Medicine Nephrology
DX: S80.811D Abrasion, right lower leg, subsequent encounter (principal); E11.621 Type 2 diabetes mellitus with foot ulcer; L97.419 Non-pressure chronic ulcer of right heel and midfoot with unspecified severity
CPT/HCPCS: 99212; 99213; A9270; G0463

== ENCOUNTER 2021-09-12 22:49 | Emergency (ER) | payer MEDICARE, SELFPAY ==
--- NOTE | 2021-09-12 | ECG_ITS ---
Measurements Intervals [place] Rate: 104 P: VA: 0 QRS: 113 QRSD: 112 T: -83 QT: 293 QTc: 387 Interpretive Statements ATRIAL FLUTTER/TACHYCARDIA WITH RAPID VENTRICULAR RESPONSE RIGHT AXIS DEVIATION INTRAVENTRICULAR CONDUCTION DELAY ST-T WAVE ABNORMALITY IN ANTEROLAT/INF LEADS- CONSIDER ISCHEMIA BASELINE WANDER- II, III, V3 ABNORMAL ECG Electronically Signed On 09-13-2021 7:13:08 CDT by Paulo CAREY
--- NOTE | ~2021-09-12 | CT_ITS ---
EXAMINATION: CT abdomen pelvis wo con DATE: 09/13/2021 01:44 INDICATION: Generalized weakness. Bladder malignancy. TECHNIQUE: Computed tomography (CT) of the abdomen and pelvis was performed without intravenous contr ast. Automated exposure control and iterative reconstruction technique were employed. Exam dose: 152 5.76 mGy-cm total exam DLP. COMPARISON: 10/21/2019 CT abdomen pelvis FINDINGS: There is mild bilateral pleural effusion. There is bibasilar dependent atelectasis with ml cifications or radiopaque material such as barium. Status post sternotomy. Pacemaker leads. Cardiomegaly. No pericardial effusion. There is extensive omental patchy soft tissue density consistent with omental metastasis. There is mi ld ascites. There is some nodularity of the peritoneum, suggesting peritoneal metastases. Status post cholecystectomy. No bile duct dilatation. No hepatic, splenic, pancreatic, and adrenal or renal space-occupying mass lesion. Bilateral renal atrophy. Prominent bilateral renal artery calcifi cations. There is extensive calcification of the abdominal aorta, celiac and superior mesenteric, micki ac and femoral arteries. No abdominal aortic aneurysm. No urinary tract calculus or hydroureteronephrosis. There is a Lopez catheter within the urinary bladder. There is suggestion of a large irregular soft t issue mass at the roof of the urinary bladder, suggesting bladder malignancy. There is edema of the abdominal and pelvic fung, proximal lower extremities. There is diffuse osteopenia. There is mild loss of height of multiple thoracic vertebrae and L1. IMPRESSION: Omental and peritoneal metastases, mild probably malignant ascites Large bladder mass lesion is suggested, consistent with history of bladder malignancy Reviewed, dictated and finalized at Location A. Reviewed, dictated and finalized at location A. IMPRESSION: Omental and peritoneal metastases, mild probably malignant ascites Large bladder mass lesion is suggested, consistent with history of bladder malcom gnancy
--- NOTE | ~2021-09-12 | XR_ITS ---
XR chest 1V portable 09/12/2021 23:24 Indication: Generalized weakness. History of PA. Procedure: AP portable chest Comparison: Comparison to multiple prior studies sequentially, with oldest reviewed study dated 05/2013. Findings: Sequential pacemaker leads are in the right atrium and right ventricle respectively. Status post median sternotomy for CABG. Cardiomegaly. There are infiltrates of the left lower lung. There i s blunting of the left lateral costophrenic recess. Central venous catheter tip in the condyle aspect of the SVC. Right lung clear. No pneumothorax. No acute osseous abnormality. Impression: 1: Left basilar infiltrates may represent atelectasis or pneumonia. 2: Small left pleural effusion versus pleural thickening. 3: Cardiomegaly. Reviewed, dictated and finalized at location A. Impression: 1: Left basilar infiltrates may represent atelectasis or pneumonia. 2: Small left pleural effusion versus pleural thickening. 3: Cardiomegaly.
[2021-09-12 22:38] VITALS: PULSE 105; RESP 12; TEMP 36.6; O2SAT 100
[2021-09-12 22:48] VITALS: BP 83/45
[2021-09-12 23:06] LABS: Basophils Absolute Auto 0.1 K/mm3 (0.0-0.1); Basophils Percent Auto 0.5 % (0.2-1.2); Eosinophils Absolute Auto 0.1 K/mm3 (0-0.3); Eosinophils Percent Auto 0.7 % (0-4.4); Hematocrit 35.1 % (37.0-47.0); Hemoglobin 10.4 g/dL (12.0-15.0); Immature Granulocyte Absolute 0.15 K/mm3 (0.00-0.031); Immature Granulocyte Percent A 0.8 % (0-0.5); Lymphocytes Percent Auto 4.7 % (18.3-44.2); Mean Corpuscular HGB Conc 29.6 g/dl (32-36); Mean Corpuscular Hemoglobin 29.4 pg (26-34); Mean Corpuscular Volume 99.2 fl (80-100); Mean Platelet Volume 9.2 fl (7.4-10.4); Monocytes Percent Auto 5.5 % (2.6-8.5); Neutrophils Absolute Auto 16.8 K/mm3 (1.3-6.7); Neutrophils Percent Auto 87.8 % (45.5-73.1); Platelet Count Result 305 k/mm3 (150-375); Red Blood Count 3.54 M/mm3 (4.2-5.4); Red Cell Distribution Width 23.7 % (11.5-14.5); White Blood Count 19.1 K/mm3 (4.5-10.0)
[2021-09-12 23:16] VITALS: BP 86/50; PULSE 106; RESP 16; O2SAT 93
[2021-09-12 23:25] LABS: Anisocytosis 1+ (NORMAL); Hypochromasia 1+ (NORMAL); Ovalocytes 1+ (NORMAL); Platelet Estimate Adequate (Adequate)
[2021-09-12 23:26] LABS: Stomatocytes 1+ (NORMAL)
[2021-09-12 23:28] LABS: Alanine Aminotransferase 20 U/L (6-35); Albumin Level 2.9 g/dL (3.5-5.1); Alkaline Phosphatase 252 U/L (38-126); Anion Gap 8 mmol/L (8-16); Aspartate Amino Transferase 88 U/L (14-36); Bilirubin,Total 1.7 mg/dL (0.2-1.3); Blood Urea Nitrogen 16 mg/dL (7-17); Carbon Dioxide 31 mmol/L (22-30); Chloride 85 mmol/L (98-107); Estimated Glomerular Filt Rate 16; Glucose 85 mg/dL (65-110); Potassium 3.4 mmol/L (3.4-5.0); Sodium 124 mmol/L (137-145)
--- NOTE | 2021-09-12 23:33 | ED.WEAKNESS ---
HPI - Weakness General Chief complaint: Weakness Stated complaint: weakness x 2 weeks Time Seen by Provider: 09/12/21 23:03 History of Present Illness HPI Narrative: Patient presents with generalized weakness. She has been feeling weak for approximately 2 weeks and has been getting worse reports not really been able to eat or drink anything because she feels very nauseous reports she is achy all over. Patient reports she gets like this after her chemotherapy but she has not had any recent chemotherapy. They also report a recent admission approximately 4 weeks ago at [facility] where she was in the ICU intubated thought to be related to a pneumonia. She was discharged to a rehab facility was doing okay discharge a couple weeks ago and since being home has gotten progressively worse. Related Data Home Medications Medication Instructions Recorded Confirmed aspirin 81 mg tablet,delayed 162 mg PO DAILY 04/06/19 05/25/21 release calcitriol 0.25 mcg capsule 0.25 mcg PO DAILY 04/06/19 05/25/21 cholecalciferol (vitamin D3) 100 4,000 unit PO DAILY 04/06/19 05/25/21 mcg (4,000 unit) capsule escitalopram oxalate 20 mg tablet 10 mg PO DAILY 04/06/19 05/25/21 (Lexapro) fenofibric acid 35 mg tablet 45 mg PO DAILY 04/06/19 05/25/21 (Fibricor) furosemide 80 mg tablet 80 mg PO DAILY 04/06/19 05/25/21 gabapentin 400 mg capsule 400 mg PO TID 04/06/19 05/25/21 insulin glargine 100 unit/mL 50 unit subcut HS 04/06/19 05/25/21 subcutaneous solution (Lantus U-100 Insulin) insulin lispro 100 unit/mL 20 - 30 unit subcut TID 04/06/19 05/25/21 subcutaneous half-unit pen (Humalog Marshall KwikPen (U-100)) vitamin B complex-vitamin C-folic 1 tablet PO DAILY 04/06/19 05/25/21 acid 0.8 mg tablet (Yue-Yves) sevelamer carbonate 800 mg tablet 800 mg PO TID 10/21/19 05/25/21 (Renvela) Allergies Allergy/AdvReac Type Severity Reaction Status Date / Time iodine Allergy Unknown Swelling Verified 09/13/21 00:19 lisinopril Allergy Unknown Swelling Verified 09/13/21 00:19 shellfish derived Allergy Unknown Swelling Verified 09/13/21 00:19 Review of Systems Review of Systems: CONSTITUTIONAL: Denies fever, chills, or sweats. EYES: Denies visual changes, redness, or discharge. ENT: Denies rhinorrhea, congestion, or otalgia. CARDIOVASCULAR: Denies chest pain, palpitations, or edema. RESPIRATORY: Does report shortness of breath GASTROINTESTINAL: Reports nausea and vomiting GENITOURINARY: Denies dysuria or hematuria. SKIN: Denies rash or itching. MUSCULOSKELETAL: Denies back pain, joint pain, or myalgia. NEUROLOGIC: Denies headache, numbness, dizziness, or focal weakness. PSYCHIATRIC: Denies anxiety or depression. All systems reviewed & are unremarkable except as noted in HPI and below PMFSH Past Medical History Medical History (Updated 09/13/21 @ 04:26 by Emre Barry MD) Anemia in chronic kidney disease, on chronic dialysis Anxiety AV fistula Cataract Chronic GERD CVA (cerebral vascular accident) Depression Diabetes Insulin-dependent with peripheral neuropathy History of CVA (cerebrovascular accident) History of myocardial infarction History of sepsis Hypertension Myocardial infarction History of a total of 3 cardiac stents Pneumonia Renal disease End-stage renal disease with dialysis on Monday Shingles Urinary tract infection Surgical History Surgical History H/O removal of cyst In abdomen History of appendectomy History of heart artery stent 3 total History of tracheostomy History of tubal ligation Hx laparoscopic cholecystectomy Hx of cardiac cath Family History Family History Mother Family history of cardiovascular disease Diabetes mellitus Dementia Sibling Sleep apnea Diabetes mellitus Hypertension Father Family history of lung cancer Family history of conges
[2021-09-12] MEDS: SODIUM CHLORIDE 0.9% IV 1,000 ML 999 ML IV CONT (23:52)
[2021-09-13] VITALS (59 sets, daily range): BP systolic 75–118; BP diastolic 49–65; PULSE 97–113; RESP 12–25; TEMP 36.7–36.8; O2SAT 96–100
[2021-09-13 00:08] LABS: Lactic Acid Reflex 1.6 mmol/L (0.7-2.0)
[2021-09-13 00:35] LABS: Influenza A QL RT-PCR Negative (Negative); Influenza B QL RT-PCR Negative (Negative); SARS-CoV-2 RNA PCR Negative
[2021-09-13] MEDS: PIPERACILLIN/TAZOBACTAM SOD 4.5 GM in SODIUM CHLORIDE 0.9% IV 100 ML 200 ML IVPB (00:36)
[2021-09-13] MEDS: SODIUM CHLORIDE 0.9% IV 500 ML 999 ML IV CONT (01:14)
--- NOTE | 2021-09-13 01:34 | PC.NURSE ---
Pt to CT via stretcher at this time
[2021-09-13] MEDS: NOREPINEPHRINE 8 MG/D5W 250 ML 8 MG/250 ML BAG 9.38 MG IV CONT (02:13)
[2021-09-13] MEDS: ONDANSETRON INJ 4 MG/2 ML VIAL IV PUSH (05:06)
--- NOTE | 2021-09-13 05:16 | PC.NURSE ---
This RN spoke with Salud at [facility] transfer center. Pt has been accepted to [facility] ICU, awaiting bed placement. Salud states this will most likely be on day shift, after 0700.
[2021-09-13 05:43] LABS: Estimated Glomerular Filt Rate 15
[2021-09-13] MEDS: SODIUM CHLORIDE 0.9% IV 1,000 ML 150 ML IV CONT (06:31)
--- NOTE | 2021-09-13 07:10 | PC.NURSE ---
Assumed care of pt. at this time. report from NICK Howell states pt. MAP to be maintained at 65
--- NOTE | 2021-09-13 07:33 | PC.NURSE ---
breakfast tray ordered.
--- NOTE | 2021-09-13 09:42 | PC.NURSE ---
pt. hypoxic at this time. pt. states pt. need cpap at night. pt. placed on 2L NC
--- NOTE | 2021-09-13 10:40 | PC.NURSE ---
pt. accepted at [facility] rm 22 [facility]
--- NOTE | 2021-09-13 11:00 | PC.NURSE ---
Per Torie, [facility] ETA [id number]
== END 2021-09-13 12:34 | disposition short-term general hospital (02) ==
PROVIDERS: Emergency Medicine; Emergency Provider Emergency Medicine; PCP Internal Medicine
DX: E87.1 Hypo-osmolality and hyponatremia (principal); E87.8 Other disorders of electrolyte and fluid balance, not elsewhere classified; J90 Pleural effusion, not elsewhere classified; I25.2 Old myocardial infarction; I12.9 Hypertensive chronic kidney disease with stage 1 through stage 4 chronic kidney disease, or unspecified chronic kidney disease; E11.22 Type 2 diabetes mellitus with diabetic chronic kidney disease; N18.9 Chronic kidney disease, unspecified; Z79.82 Long term (current) use of aspirin; Z79.4 Long term (current) use of insulin; Z20.822 Contact with and (suspected) exposure to COVID-19
CPT/HCPCS: 36415; 71045; 74176; 80053; 82565; 83605; 85025; 87040; 87502; 93005; 96361; 96365; 96366; 96367; 96368; 96375; 99285; C9803; J0131; J2405; J2543; J3370; J7030; J7040; U0003; U0005